=== PATIENT | male | born 1980 | race African-American/Black ===

== ENCOUNTER 2019-10-03 09:01 | Inpatient (IN) | payer MEDICAID, OTHER ==
[~2019-10-03] VITALS: Ht 180.3 cm; Wt 125.2 kg
[2019-10-03] VITALS (12 sets, daily range): BP systolic 99–153; BP diastolic 72–103
[2019-10-03] MEDS ORDERED: MORPHINE SULFATE 4 MG/ML CPJ (NOT FOR IM USE) IV STA (11:23)
[2019-10-03] MEDS ORDERED: ONDANSETRON HCL 4MG/2ML INJ IV STA (11:23)
[2019-10-03] MEDS ORDERED: SODIUM CHLORIDE 0.9% 1,000 ML IV ONE ×2 (11:23→13:14)
[2019-10-03 12:09] LABS: BASOPHILS % 0.3 % (0.0-2.0); HEMATOCRIT. 49.9 % (42.0-52.0); HEMOGLOBIN. 15.9 g/dL (14.0-18.0); LYMPHOCYTES % 8.3 % (20.0-50.0); MEAN CORPUSCULAR HEMOGLOBIN 30.4 pg (28.0-32.0); MEAN CORPUSCULAR VOLUME 95.5 fL (80.0-94.0); MEAN PLATELET VOLUME 9.6 fl (7.4-10.4); MONOCYTES % 4.3 % (2.0-8.0); NEUTROPHILS % 87.1 % (40.0-76.0); PLATELET 334 x1000/uL (130-400); RED BLOOD CELL COUNT 5.23 mill/uL (4.7-6.1)
[2019-10-03 12:15] LABS: CHLORIDE 76 mEq/L (98-107)
[2019-10-03 12:19] LABS: CLARITY URINE CLEAR (CLEAR); COLOR URINE YELLOW (YELLOW); KETONES URINE 1+ (NEGATIVE); LEUKOCYTE ESTERASE URINE NEGATIVE (NEGATIVE); NITRITE URINE NEGATIVE (NEGATIVE); OCCULT BLOOD URINE NEGATIVE (NEGATIVE); PROTEIN URINE NEGATIVE (NEGATIVE); SPECIFIC GRAVITY URINE 1.028 (1.005-1.030); UROBILINOGEN URINE 0.2 E.U./dL (0.2-1.0)
[2019-10-03] MEDS ORDERED: INSULIN REGULAR (DRIP) 100 UNITS in SODIUM CHLORIDE 0.9% 99 ML IV SCH ×2 (13:15→19:00)
[2019-10-03 14:00] LABS: BG BASE EXCESS -10.9 mmol/L (-2.0-2.0); BG CARBOXYHEMOGLOBIN 1.2 % (0.5-1.5); BG DEOXYHEMOGLOBIN 5.1 % (0.0-5.0); BG FRACTION INSPIRED OXYGEN 21; BG HCO3 ACT 14.4 mmol/L (22.0-26.0); BG METHEMOGLOBIN 0.3 % (0.0-1.5); BG OXYGEN SATURATION 94.8 % (92.0-98.5); BG OXYHEMOGLOBIN 93.4 % (94.0-97.0); BG PCO2 31.6 mmHg (35.0-45.0); BG PH 7.278 (7.350-7.450); BG PO2 81.4 mmHg (75.0-100.0); BG SAMPLE SITE RIGHT RADIAL; BG TOTAL HEMOGLOBIN 15.9 g/dL (12.0-18.0); BG VENT MODE ROOM AIR
[2019-10-03] MEDS ORDERED: SODIUM CHLORIDE 0.9% 1,000 ML IV SCH (14:33)
[2019-10-03] MEDS ORDERED: MAGNESIUM/ALUMINUM HYDROXIDE/SIMETHICONE 30ML UDC PO PRN (14:45)
[2019-10-03] MEDS ORDERED: ACETAMINOPHEN 325MG TABLET PO PRN (14:45)
[2019-10-03] MEDS ORDERED: DEXTROSE 50% WATER 50ML SYRINGE IV PRN ×2 (14:45)
[2019-10-03] MEDS ORDERED: CLONIDINE 0.1MG TABLET PO PRN (14:45)
[2019-10-03] MEDS ORDERED: ENOXAPARIN 40MG/0.4ML SYR SUBCUT SCH (14:45)
[2019-10-03] MEDS ORDERED: DOCUSATE SODIUM 100MG CAPSULE PO PRN (14:45)
[2019-10-03] MEDS ORDERED: NITROGLYCERIN 0.4MG TABLET SL SL PRN (14:45)
[2019-10-03] MEDS ORDERED: LORAZEPAM 0.5MG TABLET PO PRN (14:45)
[2019-10-03] MEDS ORDERED: IPRATROPIUM/ALBUTEROL 0.5-3(2.5)MG/3ML NEB NEB PRN (14:45)
[2019-10-03] MEDS ORDERED: GUAIFENESIN 200MG/10ML SUGAR FREE UDC PO PRN (14:45)
[2019-10-03] MEDS: BLOOD SUGAR DIAGNOSTIC STRIP TEST SCH ×10 (15:00→23:45)
[2019-10-03] MEDS: ENOXAPARIN 30MG/0.3ML SYR SUBCUT SCH (16:00)
[2019-10-03 16:22] LABS: CHLORIDE 93 mEq/L (98-107)
[2019-10-03 16:28] LABS: PHOSPHORUS 4.2 mg/dL (2.5-4.9)
[2019-10-03] MEDS ORDERED: ZOLPIDEM TARTRATE 5MG TABLET PO PRN (21:00)
[2019-10-03] MEDS: ONDANSETRON HCL 4MG/2ML INJ IV PRN (21:32)
[2019-10-04] VITALS (54 sets, daily range): BP systolic 114–175; BP diastolic 50–136
[2019-10-04 06:19] LABS: BASOPHILS % 0.5 % (0.0-2.0); CHLORIDE 104 mEq/L (98-107); EOSINOPHILS % 0.1 % (0.0-5.0); HEMATOCRIT. 44.3 % (42.0-52.0); HEMOGLOBIN. 15.3 g/dL (14.0-18.0); LYMPHOCYTES % 15.6 % (20.0-50.0); MEAN CORPUSCULAR HEMOGLOBIN 30.8 pg (28.0-32.0); MEAN CORPUSCULAR VOLUME 89.6 fL (80.0-94.0); MEAN PLATELET VOLUME 9.3 fl (7.4-10.4); MONOCYTES % 7.1 % (2.0-8.0); NEUTROPHILS % 76.7 % (40.0-76.0); PLATELET 254 x1000/uL (130-400); RED BLOOD CELL COUNT 4.95 mill/uL (4.7-6.1); RED CELL DISTRIBUTION WIDTH 13.1 % (11.6-14.6)
[2019-10-04 06:25] LABS: PHOSPHORUS 3.2 mg/dL (2.5-4.9)
[2019-10-04] MEDS: ENOXAPARIN 30MG/0.3ML SYR SUBCUT SCH ×2 (06:30→21:00)
[2019-10-04] MEDS: BLOOD SUGAR DIAGNOSTIC STRIP TEST SCH ×4 (07:52→21:00)
[2019-10-04] MEDS: PANTOPRAZOLE SODIUM 40 MG/VIAL IV SCH (07:59)
[2019-10-04] MEDS: KETOROLAC 15MG/ML VIAL IV PRN (08:00)
[2019-10-04] MEDS ORDERED: DEXTROSE 50% WATER 50ML SYRINGE IV PRN (09:00)
[2019-10-04] MEDS ORDERED: SODIUM POLYSTYRENE SULFONATE 15 G/60 ML BOT PO SCH (11:00)
[2019-10-04] MEDS ORDERED: INSULIN GLARGINE UD 100 UNITS/ML SYR SUBCUT SCH ×2 (11:00→22:00)
[2019-10-04] MEDS: INSULIN LISPRO 100 UNITS/ML SUBCUT SCH ×5 (12:29→21:00)
[2019-10-04] MEDS: ONDANSETRON HCL 4MG/2ML INJ IV PRN (13:00)
[2019-10-04] MEDS ORDERED: THROAT LOZENGES-BENZOCAINE/MENTH/CETYLPYRD CL LOZENGES MM PRN (17:15)
[2019-10-05] VITALS (34 sets, daily range): BP systolic 118–161; BP diastolic 72–108
[2019-10-05] MEDS: BLOOD SUGAR DIAGNOSTIC STRIP TEST SCH ×2 (07:17→11:29)
[2019-10-05] MEDS: INSULIN LISPRO 100 UNITS/ML SUBCUT SCH ×4 (07:23→11:48)
[2019-10-05] MEDS: ENOXAPARIN 30MG/0.3ML SYR SUBCUT SCH (09:21)
[2019-10-05] MEDS: PANTOPRAZOLE SODIUM 40 MG/VIAL IV SCH (09:21)
[2019-10-05] MEDS ORDERED: INSULIN GLARGINE UD 100 UNITS/ML SYR SUBCUT SCH ×2 (10:00→10:30)
[2019-10-05] MEDS: KETOROLAC 15MG/ML VIAL IV PRN (11:35)
== END 2019-10-05 15:33 | disposition home or self-care (01) | DRG 469 ==
LOC: ER 09:01 → MICUSO 13:43 → EDBEDREQ 13:50 → ENRESERV 16:41
PROVIDERS: ADMIT Internal Medicine; ATTEND Internal Medicine
DX: N17.9 Acute kidney failure, unspecified (principal); E11.10 Type 2 diabetes mellitus with ketoacidosis without coma; E83.52 Hypercalcemia; E87.1 Hypo-osmolality and hyponatremia; E66.9 Obesity, unspecified; I10 Essential (primary) hypertension; Z79.4 Long term (current) use of insulin; Z79.899 Other long term (current) drug therapy; Z68.38 Body mass index [BMI] 38.0-38.9, adult
CPT/HCPCS: 36415; 36600; 74176; 80048; 80053; 81003; 82375; 82805; 82962; 83036; 83735; 84100; 85025; 93922; 93970; 96365; 99291; C9113; J1650; J1815; J1885; J2270; J2405; J7030; J7050

== ENCOUNTER 2019-10-09 08:53 | Emergency (ER) | payer MEDICAID ==
[~2019-10-09] VITALS: Ht 177.8 cm; Wt 118.0 kg
[2019-10-09] MEDS ORDERED: SODIUM CHLORIDE 0.9% 1,000 ML IV ONE (09:20)
[2019-10-09 09:52] LABS: BASOPHILS % 0.6 % (0.0-2.0); EOSINOPHILS % 1.7 % (0.0-5.0); HEMATOCRIT. 38.5 % (42.0-52.0); HEMOGLOBIN. 13.2 g/dL (14.0-18.0); LYMPHOCYTES % 34.5 % (20.0-50.0); MEAN CORPUSCULAR HEMOGLOBIN 31.2 pg (28.0-32.0); MEAN PLATELET VOLUME 8.7 fl (7.4-10.4); NEUTROPHILS % 56.2 % (40.0-76.0); PLATELET 206 x1000/uL (130-400); RED BLOOD CELL COUNT 4.23 mill/uL (4.7-6.1); RED CELL DISTRIBUTION WIDTH 12.8 % (11.6-14.6)
[2019-10-09 09:55] LABS: CHLORIDE 99 mEq/L (98-107); INR 0.9; PROTHROMBIN TIME 9.4 sec (9.6-11.0)
[2019-10-09 09:55] LABS: BG BASE EXCESS 0.4 mmol/L (-2.0-2.0); BG CARBOXYHEMOGLOBIN 0.4 % (0.5-1.5); BG FRACTION INSPIRED OXYGEN 21; BG HCO3 ACT 25.2 mmol/L (22.0-26.0); BG METHEMOGLOBIN 0.3 % (0.0-1.5); BG OXYHEMOGLOBIN 95.3 % (94.0-97.0); BG PH 7.406 (7.350-7.450); BG PO2 77.3 mmHg (75.0-100.0); BG SAMPLE SITE RIGHT RADIAL; BG TOTAL HEMOGLOBIN 13.4 g/dL (12.0-18.0); BG VENT MODE ROOM AIR
[2019-10-09 10:01] LABS: BETA HYDROXYBUTYRATE 1.8 mMol/L (0.0-0.3)
[2019-10-09] MEDS ORDERED: INSULIN REGULAR (HUMULIN R) 300UNITS/3ML SUBCUT ONE (11:45)
[2019-10-09 11:47] LABS: CLARITY URINE CLEAR (CLEAR); COLOR URINE YELLOW (YELLOW); KETONES URINE 1+ (NEGATIVE); LEUKOCYTE ESTERASE URINE NEGATIVE (NEGATIVE); NITRITE URINE NEGATIVE (NEGATIVE); OCCULT BLOOD URINE NEGATIVE (NEGATIVE); PROTEIN URINE NEGATIVE (NEGATIVE); SPECIFIC GRAVITY URINE 1.017 (1.005-1.030)
[2019-10-09 11:49] VITALS: BP 130/74
== END 2019-10-09 11:52 | disposition home or self-care (01) ==
LOC: ER 09:11
DX: R10.84 Generalized abdominal pain (principal); Z76.0 Encounter for issue of repeat prescription; E11.9 Type 2 diabetes mellitus without complications; I10 Essential (primary) hypertension
CPT/HCPCS: 36415; 36600; 74176; 80053; 81003; 82010; 82375; 82805; 82962; 83690; 84484; 85025; 85610; 99284; J7030; Z7610

== ENCOUNTER 2020-09-21 21:16 | Inpatient (IN) | payer MEDICAID ==
[~2020-09-21] VITALS: Ht 165.1 cm; Wt 90.7 kg
[2020-09-22 00:46] LABS: BASOPHILS % 0.5 % (0.0-2.0); HEMATOCRIT. 46.3 % (42.0-52.0); HEMOGLOBIN. 15.6 g/dL (14.0-18.0); LYMPHOCYTES % 37.9 % (20.0-50.0); MEAN CORPUSCULAR VOLUME 89.3 fL (80.0-94.0); MONOCYTES % 8.1 % (2.0-8.0); NEUTROPHILS % 53.5 % (40.0-76.0); PLATELET 139 x1000/uL (130-400); RED BLOOD CELL COUNT 5.18 mill/uL (4.7-6.1); RED CELL DISTRIBUTION WIDTH 13.4 % (11.6-14.6)
[2020-09-22 00:49] LABS: CHLORIDE 103 mEq/L (98-107)
[2020-09-22 00:51] LABS: PARTIAL THROMBOPLASTIN TIME 26.2 sec (23.4-31.0); PROTHROMBIN TIME 10.8 sec (9.6-11.0)
[2020-09-22 00:55] LABS: ETHANOL BLOOD < 10 mg/dL
[2020-09-22 02:50] LABS: CLARITY URINE CLEAR (CLEAR); COLOR URINE DARK YELLOW (YELLOW); KETONES URINE TRACE (NEGATIVE); LEUKOCYTE ESTERASE URINE NEGATIVE (NEGATIVE); NITRITE URINE NEGATIVE (NEGATIVE); OCCULT BLOOD URINE NEGATIVE (NEGATIVE); PROTEIN URINE 1+ (NEGATIVE); SPECIFIC GRAVITY URINE 1.021 (1.005-1.030)
[2020-09-22 03:09] LABS: *AMPHETAMINES SCREEN URINE NEGATIVE (NEGATIVE); *BARBITURATES SCREEN URINE NEGATIVE (NEGATIVE); *BENZODIAZEPINES SCREEN URINE NEGATIVE (NEGATIVE)
[2020-09-22 03:10] LABS: *COCAINE SCREEN URINE NEGATIVE (NEGATIVE); CANNABINOID URINE SCREEN NEGATIVE (NEGATIVE); METHADONE URINE SCREEN NEGATIVE (NEGATIVE); OPIATES URINE SCREEN NEGATIVE (NEGATIVE); PHENCYCLIDINE URINE SCREEN NEGATIVE (NEGATIVE)
[2020-09-22] MEDS ORDERED: ONDANSETRON HCL 4MG/2ML INJ IV PRN (09:30)
[2020-09-22] MEDS ORDERED: ACETAMINOPHEN 325MG TABLET PO PRN (09:30)
[2020-09-22] MEDS: DOCUSATE SODIUM 250MG CAPSULE PO SCH (11:00)
[2020-09-22] MEDS ORDERED: ENOXAPARIN 40MG/0.4ML SYR SUBCUT SCH (11:00)
[2020-09-22] MEDS ORDERED: BISACODYL 10MG SUPP PR PRN (12:00)
[2020-09-22] MEDS: PIPERACILLIN/TAZ 3.375G PREMIX 50 ML IV SCH ×2 (13:30→20:45)
[2020-09-22] MEDS: FAMOTIDINE 20MG TABLET PO SCH (22:10)
[2020-09-22] MEDS: MORPHINE SULFATE 2 MG/ML CPJ (NOT FOR IM USE) IV PRN (22:11)
[2020-09-22] MEDS: ENOXAPARIN 80MG/0.8ML SYR SUBCUT SCH (22:11)
[2020-09-23] MEDS: PIPERACILLIN/TAZ 3.375G PREMIX 50 ML IV SCH (03:53)
[2020-09-23] MEDS: MORPHINE SULFATE 2 MG/ML CPJ (NOT FOR IM USE) IV PRN ×2 (03:54→22:53)
[2020-09-23 05:41] LABS: BASOPHILS % 0.8 % (0.0-2.0); EOSINOPHILS % 0.1 % (0.0-5.0); HEMATOCRIT. 45.3 % (42.0-52.0); HEMOGLOBIN. 15.1 g/dL (14.0-18.0); MEAN CORPUSCULAR HEMOGLOBIN 30.2 pg (28.0-32.0); MEAN CORPUSCULAR VOLUME 90.2 fL (80.0-94.0); MEAN PLATELET VOLUME 9.1 fl (7.4-10.4); MONOCYTES % 8.4 % (2.0-8.0); NEUTROPHILS % 59.7 % (40.0-76.0); PLATELET 108 x1000/uL (130-400); RED BLOOD CELL COUNT 5.02 mill/uL (4.7-6.1); RED CELL DISTRIBUTION WIDTH 13.2 % (11.6-14.6)
[2020-09-23 05:48] LABS: CHLORIDE 102 mEq/L (98-107)
[2020-09-23 06:31] LABS: HEPATITIS B SURFACE ANTIGEN NEGATIVE
[2020-09-23 07:00] LABS: HEPATITIS A AB IGM NEGATIVE (NEGATIVE)
[2020-09-23] MEDS: AMLODIPINE 2.5MG TABLET PO SCH (11:00)
[2020-09-23] MEDS ORDERED: SODIUM CHLORIDE 0.9% 500 ML IV ONE (12:15)
[2020-09-23] MEDS ORDERED: MIDODRINE HCL 5MG TABLET PO PRN (12:15)
[2020-09-23 13:23] VITALS: BP 99/54
[2020-09-23] MEDS: DOCUSATE SODIUM 250MG CAPSULE PO SCH (14:21)
[2020-09-23] MEDS: ENOXAPARIN 80MG/0.8ML SYR SUBCUT SCH ×2 (14:21→22:26)
[2020-09-23] MEDS: NITROGLYCERIN OINT 1GM/INCH UDPKT TD SCH ×2 (14:21→22:27)
[2020-09-23] MEDS: ASPIRIN 81MG TABLET PO SCH (14:21)
[2020-09-23 15:56] VITALS: BP 119/58
[2020-09-23 16:00] VITALS: BP 97/30
[2020-09-23] MEDS: PIPERACILLIN/TAZOBACTAM 3.375 G in DEXT 5% WATER 100 ML IV SCH (18:00)
[2020-09-23] MEDS: FAMOTIDINE 20MG TABLET PO SCH (22:27)
[2020-09-24] VITALS: BP 98/52
[2020-09-24] MEDS: PIPERACILLIN/TAZOBACTAM 3.375 G in DEXT 5% WATER 100 ML IV SCH ×4 (00:05→17:46)
[2020-09-24 04:00] VITALS: BP 98/43
[2020-09-24] MEDS: NITROGLYCERIN OINT 1GM/INCH UDPKT TD SCH (06:08)
[2020-09-24 07:16] LABS: BASOPHILS % 0.3 % (0.0-2.0); EOSINOPHILS % 0.1 % (0.0-5.0); HEMATOCRIT. 44.6 % (42.0-52.0); HEMOGLOBIN. 14.8 g/dL (14.0-18.0); LYMPHOCYTES % 42.5 % (20.0-50.0); MEAN CORPUSCULAR HEMOGLOBIN 29.9 pg (28.0-32.0); MEAN CORPUSCULAR VOLUME 90.1 fL (80.0-94.0); MEAN PLATELET VOLUME 9.9 fl (7.4-10.4); MONOCYTES % 9.5 % (2.0-8.0); NEUTROPHILS % 47.6 % (40.0-76.0); PLATELET 116 x1000/uL (130-400); RED BLOOD CELL COUNT 4.95 mill/uL (4.7-6.1); RED CELL DISTRIBUTION WIDTH 13.5 % (11.6-14.6)
[2020-09-24 07:30] LABS: CHLORIDE 104 mEq/L (98-107)
[2020-09-24 08:00] VITALS: BP 90/53
[2020-09-24] MEDS: DOCUSATE SODIUM 250MG CAPSULE PO SCH (08:39)
[2020-09-24] MEDS: ASPIRIN 81MG TABLET PO SCH (08:39)
[2020-09-24] MEDS: ENOXAPARIN 80MG/0.8ML SYR SUBCUT SCH ×2 (08:40→22:28)
[2020-09-24] MEDS: AMLODIPINE 2.5MG TABLET PO SCH (08:40)
[2020-09-24 12:00] VITALS: BP 108/48
[2020-09-24 16:00] VITALS: BP 96/60
[2020-09-24 20:00] VITALS: BP 99/61
[2020-09-24] MEDS: FAMOTIDINE 20MG TABLET PO SCH (22:28)
[2020-09-24] MEDS: MORPHINE SULFATE 2 MG/ML CPJ (NOT FOR IM USE) IV PRN (22:29)
[2020-09-25] VITALS: BP 102/65
[2020-09-25] MEDS: PIPERACILLIN/TAZOBACTAM 3.375 G in DEXT 5% WATER 100 ML IV SCH ×3 (00:37→13:37)
[2020-09-25 04:00] VITALS: BP 101/62
[2020-09-25 07:40] LABS: BASOPHILS % 0.3 % (0.0-2.0); EOSINOPHILS % 0.1 % (0.0-5.0); HEMATOCRIT. 45.4 % (42.0-52.0); HEMOGLOBIN. 15.3 g/dL (14.0-18.0); LYMPHOCYTES % 43.7 % (20.0-50.0); MEAN CORPUSCULAR HEMOGLOBIN 30.4 pg (28.0-32.0); MEAN CORPUSCULAR VOLUME 90.3 fL (80.0-94.0); MEAN PLATELET VOLUME 10.5 fl (7.4-10.4); MONOCYTES % 8.6 % (2.0-8.0); NEUTROPHILS % 47.3 % (40.0-76.0); PLATELET 118 x1000/uL (130-400); RED BLOOD CELL COUNT 5.03 mill/uL (4.7-6.1); RED CELL DISTRIBUTION WIDTH 13.4 % (11.6-14.6)
[2020-09-25 08:00] VITALS: BP 93/62
[2020-09-25 08:51] LABS: CHLORIDE 102 mEq/L (98-107)
[2020-09-25] MEDS ORDERED: ENOXAPARIN 40MG/0.4ML SYR SUBCUT SCH (09:30)
[2020-09-25] MEDS: DOCUSATE SODIUM 250MG CAPSULE PO SCH (09:36)
[2020-09-25] MEDS: ASPIRIN 81MG TABLET PO SCH (09:36)
[2020-09-25 12:00] VITALS: BP 112/50
[2020-09-25 15:03] VITALS: BP 112/50
[2020-09-25] MEDS ORDERED: METOPROLOL TARTRATE 50MG TABLET PO SCH (21:00)
[2020-10-01] MEDS ORDERED: BENZ100C86 MT ×2 (14:57→15:00)
[2020-10-01] MEDS ORDERED: ASPI-1497 MT (14:57)
[2020-10-01] MEDS ORDERED: INSU100V34 SQ (14:58)
[2020-10-12] MEDS ORDERED: LIP40 MT (12:48)
[2020-10-12] MEDS ORDERED: SIME80TA15 MT (14:03)
[2020-10-12] MEDS ORDERED: SUCR1TAB MT (14:03)
== END 2020-09-25 15:47 | disposition home or self-care (01) | DRG 720 ==
LOC: ER 21:16 → MICUSO 09-22 02:01 → 7WST 09-23 09:05
PROVIDERS: ADMIT Internal Medicine; ATTEND Internal Medicine
DX: A41.89 Other specified sepsis (principal); U07.1 COVID-19; I21.4 Non-ST elevation (NSTEMI) myocardial infarction; E44.0 Moderate protein-calorie malnutrition; E66.9 Obesity, unspecified; I10 Essential (primary) hypertension; J96.00 Acute respiratory failure, unspecified whether with hypoxia or hypercapnia; K21.9 Gastro-esophageal reflux disease without esophagitis; R74.01 Elevation of levels of liver transaminase levels; K76.0 Fatty (change of) liver, not elsewhere classified; E11.9 Type 2 diabetes mellitus without complications; K59.00 Constipation, unspecified; K82.8 Other specified diseases of gallbladder; I47.1 Supraventricular tachycardia; J12.89 Other viral pneumonia; Z79.4 Long term (current) use of insulin; I69.320 Aphasia following cerebral infarction; Z68.33 Body mass index [BMI] 33.0-33.9, adult; Z71.3 Dietary counseling and surveillance; K81.9 Cholecystitis, unspecified
CPT/HCPCS: 36415; 71045; 76700; 80048; 80053; 80061; 80076; 80305; 80320; 81003; 82248; 83036; 83880; 84443; 84484; 85025; 86705; 86709; 86803; 87340; 93005; 96372; 96374; 99285; J1650; J2270; J2405; J2543; J7040; J7060; U0003; G0480

== ENCOUNTER 2021-01-31 21:35 | Inpatient (IN) | payer MEDICARE ==
[~2021-01-31] VITALS: Ht 182.9 cm; Wt 90.3 kg
[~2021-01-31 21:35] MED LIST: CLOP75TA15 MT; COR6 PO; FURO-152 MT; KEPP500 MT; LIP40 MT; LISI-186 PO; MAGN400C MT; METF-414 MT; METO10TA3 MT; OMEP20TA2 MT; POTA10CA42 MT; SIME80TA14 PO; SIME80TA15 MT
[2021-01-31 23:58] LABS: CHLORIDE 105 mEq/L (98-107)
[2021-02-01 00:19] LABS: BASOPHILS % 0.7 % (0.0-2.0); HEMATOCRIT. 41.1 % (42.0-52.0); HEMOGLOBIN. 13.5 g/dL (14.0-18.0); LYMPHOCYTES % 51.7 % (20.0-50.0); MEAN CORPUSCULAR HEMOGLOBIN 29.7 pg (28.0-32.0); MEAN CORPUSCULAR VOLUME 90.1 fL (80.0-94.0); MEAN PLATELET VOLUME 10.1 fl (7.4-10.4); MONOCYTES % 4.7 % (2.0-8.0); NEUTROPHILS % 41.9 % (40.0-76.0); PLATELET 125 x1000/uL (130-400); RED BLOOD CELL COUNT 4.56 mill/uL (4.7-6.1)
[2021-02-01] MEDS ORDERED: ACETAMINOPHEN 325MG TABLET PO PRN (14:30)
[2021-02-01] MEDS: FUROSEMIDE 40MG/4ML VIAL IVP SCH (15:18)
[2021-02-01] MEDS ORDERED: ENOXAPARIN 40MG/0.4ML SYR SUBCUT SCH (18:00)
[2021-02-01] MEDS: OMEPRAZOLE 20MG CAPSULE EXTENDED RELEASE PO SCH (18:30)
[2021-02-01] MEDS ORDERED: IOHEXOL-350 100 ML BOTTLE ONE (19:57)
[2021-02-01] MEDS ORDERED: HYDROCODONE/ACETAMINOPHEN 5/325MG TABLET PO PRN (20:30)
[2021-02-01] MEDS: CARVEDILOL 3.125 MG TABLET PO SCH (20:30)
[2021-02-01] MEDS: ONDANSETRON HCL 4MG/2ML INJ IV PRN (21:01)
[2021-02-01] MEDS: ATORVASTATIN CALCIUM 40MG TABLET PO SCH (21:01)
[2021-02-01] MEDS ORDERED: MORPHINE SULFATE 2 MG/ML CPJ (NOT FOR IM USE) IV SCH (21:15)
[2021-02-01 22:00] VITALS: BP 103/77
[2021-02-02] VITALS: BP 108/74
[2021-02-02 04:00] VITALS: BP 106/71
[2021-02-02] MEDS: OMEPRAZOLE 20MG CAPSULE EXTENDED RELEASE PO SCH (05:02)
[2021-02-02 06:48] LABS: BASOPHILS % 0.9 % (0.0-2.0); EOSINOPHILS % 2.5 % (0.0-5.0); HEMATOCRIT. 40.7 % (42.0-52.0); HEMOGLOBIN. 13.4 g/dL (14.0-18.0); LYMPHOCYTES % 36.3 % (20.0-50.0); MEAN CORPUSCULAR HEMOGLOBIN 29.8 pg (28.0-32.0); MEAN CORPUSCULAR VOLUME 90.2 fL (80.0-94.0); MEAN PLATELET VOLUME 10.1 fl (7.4-10.4); MONOCYTES % 5.5 % (2.0-8.0); NEUTROPHILS % 54.8 % (40.0-76.0); PLATELET 104 x1000/uL (130-400); RED BLOOD CELL COUNT 4.51 mill/uL (4.7-6.1); RED CELL DISTRIBUTION WIDTH 20.4 % (11.6-14.6)
[2021-02-02 06:54] LABS: CHLORIDE 104 mEq/L (98-107)
[2021-02-02 08:00] VITALS: BP 115/99
[2021-02-02] MEDS: FUROSEMIDE 40MG/4ML VIAL IVP SCH ×2 (08:10→17:50)
[2021-02-02] MEDS: METFORMIN HCL 500MG TABLET PO SCH ×2 (08:11→17:50)
[2021-02-02] MEDS: LOSARTAN POTASSIUM 25 MG TABLET PO SCH (08:12)
[2021-02-02] MEDS: CARVEDILOL 3.125 MG TABLET PO SCH ×2 (08:12→20:48)
[2021-02-02] MEDS: ASPIRIN 81MG TABLET PO SCH ×2 (08:12→08:19)
[2021-02-02 12:00] VITALS: BP 100/66
[2021-02-02] MEDS ORDERED: POTASSIUM CHLORIDE 20MEQ TABLET SR PO SCH (12:00)
[2021-02-02] MEDS: ENOXAPARIN 100MG/ML SYR SUBCUT SCH ×2 (12:07→21:01)
[2021-02-02 16:00] VITALS: BP 103/73
[2021-02-02 20:00] VITALS: BP 97/69
[2021-02-02] MEDS: ATORVASTATIN CALCIUM 40MG TABLET PO SCH (20:50)
[2021-02-02] MEDS ORDERED: MORPHINE SULFATE 2 MG/ML CPJ (NOT FOR IM USE) IV PRN (21:00)
[2021-02-03] VITALS: BP 98/69
[2021-02-03 04:00] VITALS: BP 121/69
[2021-02-03] MEDS: FUROSEMIDE 40MG/4ML VIAL IVP SCH (06:15)
[2021-02-03 06:18] LABS: BASOPHILS % 0.9 % (0.0-2.0); CHLORIDE 105 mEq/L (98-107); EOSINOPHILS % 3.1 % (0.0-5.0); HEMATOCRIT. 42.8 % (42.0-52.0); HEMOGLOBIN. 13.8 g/dL (14.0-18.0); LYMPHOCYTES % 52.1 % (20.0-50.0); MEAN CORPUSCULAR HEMOGLOBIN 29.1 pg (28.0-32.0); MEAN CORPUSCULAR VOLUME 89.9 fL (80.0-94.0); MEAN PLATELET VOLUME 10.2 fl (7.4-10.4); NEUTROPHILS % 38.9 % (40.0-76.0); PLATELET 124 x1000/uL (130-400); RED BLOOD CELL COUNT 4.76 mill/uL (4.7-6.1); RED CELL DISTRIBUTION WIDTH 20.5 % (11.6-14.6)
[2021-02-03 06:34] LABS: INR 1.5; PROTHROMBIN TIME 15.4 sec (9.6-11.0)
[2021-02-03 08:00] VITALS: BP 93/66
[2021-02-03] MEDS: CARVEDILOL 3.125 MG TABLET PO SCH (08:34)
[2021-02-03] MEDS: LOSARTAN POTASSIUM 25 MG TABLET PO SCH (08:34)
[2021-02-03] MEDS: METFORMIN HCL 500MG TABLET PO SCH (08:40)
[2021-02-03] MEDS: ENOXAPARIN 100MG/ML SYR SUBCUT SCH (08:42)
[2021-02-03] MEDS ORDERED: FAMOTIDINE 20MG TABLET PO SCH (09:00)
[2021-02-03] MEDS ORDERED: POTA10CA42 MT (11:56)
[2021-02-03] MEDS ORDERED: LIP40 MT (11:56)
[2021-02-03] MEDS ORDERED: LISI-186 PO (11:56)
[2021-02-03] MEDS ORDERED: FURO-151 MT (11:56)
[2021-02-03] MEDS ORDERED: APIX5TAB PO (11:56)
[2021-02-03] MEDS ORDERED: OMEP20TA2 MT (11:56)
[2021-02-03] MEDS ORDERED: MAGN400C MT (11:56)
[2021-02-03] MEDS ORDERED: APIX5TAB MT (11:56)
[2021-02-03] MEDS ORDERED: METO10TA3 MT (11:56)
[2021-02-03] MEDS ORDERED: METF-414 MT (11:56)
[2021-02-03] MEDS ORDERED: COR6 PO (11:56)
[2021-02-03 12:00] VITALS: BP 94/64
[2021-02-03 13:07] VITALS: BP 94/64
[2021-02-03] MEDS: ONDANSETRON HCL 4MG/2ML INJ IV PRN (14:20)
== END 2021-02-03 15:05 | disposition home or self-care (01) | DRG 194 ==
LOC: ER 21:35 → 5WST 02-01 02:53 → ENRESERV 02-01 19:32
PROVIDERS: ADMIT Internal Medicine; ATTEND Internal Medicine
DX: I50.23 Acute on chronic systolic (congestive) heart failure (principal); I27.20 Pulmonary hypertension, unspecified; K31.84 Gastroparesis; I82.401 Acute embolism and thrombosis of unspecified deep veins of right lower extremity; E11.43 Type 2 diabetes mellitus with diabetic autonomic (poly)neuropathy; M94.0 Chondrocostal junction syndrome [Tietze]; K29.70 Gastritis, unspecified, without bleeding; G89.29 Other chronic pain; Z86.16 Personal history of COVID-19; Z86.73 Personal history of transient ischemic attack (TIA), and cerebral infarction without residual deficits; Z79.899 Other long term (current) drug therapy
CPT/HCPCS: 36415; 71045; 71275; 80048; 80053; 83880; 84484; 85025; 85379; 93005; 93970; 97162; 97166; 99285; J1650; J1940; J2270; J2405; Q9967

== ENCOUNTER 2021-03-18 20:53 | Inpatient (IN) | payer MEDICARE ==
[~2021-03-18] VITALS: Ht 177.8 cm; Wt 102.7 kg
[~2021-03-18 20:53] MED LIST changes: +APIX5TAB MT; +APIX5TAB PO; -CLOP75TA15 MT; +FURO-151 MT
[2021-03-18] MEDS ORDERED: SODIUM CHLORIDE 0.9% 1,000 ML IV ONE (21:15)
[2021-03-18 21:36] LABS: BASOPHILS % 0.8 % (0.0-2.0); EOSINOPHILS % 0.4 % (0.0-5.0); HEMOGLOBIN. 12.8 g/dL (14.0-18.0); LYMPHOCYTES % 20.5 % (20.0-50.0); MEAN CORPUSCULAR HEMOGLOBIN 31.1 pg (28.0-32.0); MEAN CORPUSCULAR VOLUME 91.9 fL (80.0-94.0); MEAN PLATELET VOLUME 8.6 fl (7.4-10.4); MONOCYTES % 6.7 % (2.0-8.0); NEUTROPHILS % 71.6 % (40.0-76.0); PLATELET 191 x1000/uL (130-400); RED BLOOD CELL COUNT 4.13 mill/uL (4.7-6.1); RED CELL DISTRIBUTION WIDTH 21.1 % (11.6-14.6)
[2021-03-18 21:43] LABS: CHLORIDE 100 mEq/L (98-107)
[2021-03-18 21:47] LABS: ETHANOL BLOOD < 10 mg/dL
[2021-03-18] MEDS ORDERED: PANTOPRAZOLE SODIUM 40 MG/VIAL IV ONE (23:15)
[2021-03-18] MEDS ORDERED: HYDROCODONE/ACETAMINOPHEN 5/325MG TABLET PO ONE (23:45)
[2021-03-19] VITALS (10 sets, daily range): BP systolic 93–106; BP diastolic 54–67
[2021-03-19 02:47] LABS: CLARITY URINE CLOUDY (CLEAR); COLOR URINE DARK YELLOW (YELLOW); KETONES URINE NEGATIVE (NEGATIVE); LEUKOCYTE ESTERASE URINE 2+ (NEGATIVE); NITRITE URINE NEGATIVE (NEGATIVE); OCCULT BLOOD URINE 1+ (NEGATIVE); PROTEIN URINE 2+ (NEGATIVE); SPECIFIC GRAVITY URINE 1.014 (1.005-1.030)
[2021-03-19] MEDS ORDERED: MORPHINE SULFATE 2 MG/ML CPJ (NOT FOR IM USE) IV SCH (03:15)
[2021-03-19] MEDS ORDERED: ONDANSETRON HCL 4MG/2ML INJ IV PRN ×2 (03:15→06:00)
[2021-03-19] MEDS ORDERED: MORPHINE SULFATE 2 MG/ML CPJ (NOT FOR IM USE) IV PRN (06:00)
[2021-03-19] MEDS ORDERED: DEXTROSE 50% WATER 50ML SYRINGE IV PRN (06:00)
[2021-03-19] MEDS: BLOOD SUGAR DIAGNOSTIC STRIP TEST SCH ×4 (06:57→20:41)
[2021-03-19] MEDS: OMEPRAZOLE 20MG CAPSULE EXTENDED RELEASE PO SCH ×2 (07:00→20:57)
[2021-03-19] MEDS: INSULIN LISPRO 100 UNITS/ML SUBCUT SCH ×4 (07:20→20:58)
[2021-03-19] MEDS ORDERED: HYDROCODONE/ACETAMINOPHEN 5/325MG TABLET PO PRN (08:00)
[2021-03-19] MEDS: CARVEDILOL 3.125 MG TABLET PO SCH ×2 (09:00→20:59)
[2021-03-19] MEDS ORDERED: ENOXAPARIN 30MG/0.3ML SYR SUBCUT SCH (09:00)
[2021-03-19] MEDS ORDERED: FUROSEMIDE 20MG TABLET PO SCH (09:00)
[2021-03-19] MEDS: METFORMIN HCL 500MG TABLET PO SCH ×2 (09:37→17:34)
[2021-03-19] MEDS: ATORVASTATIN CALCIUM 40MG TABLET PO SCH (09:37)
[2021-03-19] MEDS: LEVETIRACETAM 500MG TABLET PO SCH ×2 (09:37→17:34)
[2021-03-19] MEDS: ENOXAPARIN 80MG/0.8ML SYR SUBCUT NR ×2 (12:42→12:54)
[2021-03-19] MEDS: METOCLOPRAMIDE HCL 10MG/2ML VIAL IV SCH ×2 (12:42→17:34)
[2021-03-19 18:32] LABS: BASOPHILS % 0.4 % (0.0-2.0); HEMATOCRIT. 37.8 % (42.0-52.0); HEMOGLOBIN. 12.5 g/dL (14.0-18.0); MEAN CORPUSCULAR HEMOGLOBIN 30.2 pg (28.0-32.0); MEAN CORPUSCULAR VOLUME 91.1 fL (80.0-94.0); MONOCYTES % 6.3 % (2.0-8.0); NEUTROPHILS % 69.3 % (40.0-76.0); PLATELET 193 x1000/uL (130-400); RED BLOOD CELL COUNT 4.15 mill/uL (4.7-6.1); RED CELL DISTRIBUTION WIDTH 20.7 % (11.6-14.6)
[2021-03-19 18:39] LABS: INR 1.6
[2021-03-19] MEDS ORDERED: ENOXAPARIN 100MG/ML SYR SUBCUT SCH (21:00)
[2021-03-19] MEDS: GUAIFENESIN-DM 200MG-20MG/10ML UDC PO PRN (23:23)
[2021-03-19] MEDS: KETOROLAC 30MG/ML VIAL IV PRN (23:25)
[2021-03-20] VITALS (10 sets, daily range): BP systolic 93–108; BP diastolic 59–76
[2021-03-20] MEDS: METOCLOPRAMIDE HCL 10MG/2ML VIAL IV SCH ×4 (01:01→17:22)
[2021-03-20] MEDS: BLOOD SUGAR DIAGNOSTIC STRIP TEST SCH ×4 (06:21→21:49)
[2021-03-20 06:40] LABS: CHLORIDE 101 mEq/L (98-107)
[2021-03-20] MEDS: OMEPRAZOLE 20MG CAPSULE EXTENDED RELEASE PO SCH ×2 (06:44→21:56)
[2021-03-20 06:46] LABS: HEMATOCRIT 37.7 % (42.0-52.0); HEMOGLOBIN 12.9 g/dL (14.0-18.0); MEAN CORPUSCULAR HEMOGLOBIN 31.3 pg (28.0-32.0); MEAN CORPUSCULAR VOLUME 91.3 fL (80.0-94.0); PLATELET 184 x1000/uL (130-400); RED BLOOD CELL COUNT 4.13 mill/uL (4.7-6.1); RED CELL DISTRIBUTION WIDTH 20.4 % (11.6-14.6)
[2021-03-20] MEDS: INSULIN LISPRO 100 UNITS/ML SUBCUT SCH ×4 (07:20→21:00)
[2021-03-20] MEDS: CARVEDILOL 3.125 MG TABLET PO SCH ×3 (08:52→21:00)
[2021-03-20] MEDS ORDERED: MORPHINE SULFATE 2 MG/ML CPJ (NOT FOR IM USE) IV SCH (09:00)
[2021-03-20] MEDS: METFORMIN HCL 500MG TABLET PO SCH ×2 (09:03→17:22)
[2021-03-20] MEDS: ATORVASTATIN CALCIUM 40MG TABLET PO SCH (09:05)
[2021-03-20] MEDS: LEVETIRACETAM 500MG TABLET PO SCH ×2 (09:05→17:22)
[2021-03-20] MEDS ORDERED: FUROSEMIDE 40MG/4ML VIAL IVP NR (17:00)
[2021-03-20] MEDS ORDERED: RIVAROXABAN 20 MG TABLET PO SCH (17:20)
[2021-03-20] MEDS: GUAIFENESIN-DM 200MG-20MG/10ML UDC PO PRN (21:56)
[2021-03-20] MEDS: KETOROLAC 30MG/ML VIAL IV PRN (21:58)
[2021-03-21] VITALS (12 sets, daily range): BP systolic 95–129; BP diastolic 52–80
[2021-03-21] MEDS: METOCLOPRAMIDE HCL 10MG/2ML VIAL IV SCH ×5 (00:43→23:00)
[2021-03-21] MEDS: ZOLPIDEM TARTRATE 5MG TABLET PO PRN ×2 (00:43→23:00)
[2021-03-21] MEDS: BLOOD SUGAR DIAGNOSTIC STRIP TEST SCH ×4 (06:40→21:11)
[2021-03-21] MEDS: INSULIN LISPRO 100 UNITS/ML SUBCUT SCH ×4 (06:41→21:00)
[2021-03-21] MEDS: OMEPRAZOLE 20MG CAPSULE EXTENDED RELEASE PO SCH ×2 (06:46→21:10)
[2021-03-21 08:17] LABS: HEMATOCRIT 39.3 % (42.0-52.0); HEMOGLOBIN 13.2 g/dL (14.0-18.0); MEAN CORPUSCULAR HEMOGLOBIN 30.3 pg (28.0-32.0); MEAN CORPUSCULAR VOLUME 90.3 fL (80.0-94.0); PLATELET 213 x1000/uL (130-400); RED BLOOD CELL COUNT 4.35 mill/uL (4.7-6.1); RED CELL DISTRIBUTION WIDTH 21.1 % (11.6-14.6)
[2021-03-21] MEDS: ATORVASTATIN CALCIUM 40MG TABLET PO SCH (08:56)
[2021-03-21] MEDS: LEVETIRACETAM 500MG TABLET PO SCH ×2 (08:56→18:04)
[2021-03-21] MEDS: METFORMIN HCL 500MG TABLET PO SCH ×2 (08:56→18:04)
[2021-03-21] MEDS: CARVEDILOL 3.125 MG TABLET PO SCH ×2 (08:58→21:00)
[2021-03-21 09:04] LABS: CHLORIDE 100 mEq/L (98-107)
[2021-03-21] MEDS ORDERED: POTASSIUM CHLORIDE 20MEQ TABLET SR PO SCH (09:15)
[2021-03-21] MEDS ORDERED: FUROSEMIDE 40MG/4ML VIAL IVP NR (12:45)
[2021-03-21] MEDS: FUROSEMIDE 40MG/4ML VIAL IVP SCH (18:04)
[2021-03-22] VITALS (10 sets, daily range): BP systolic 98–108; BP diastolic 55–73
[2021-03-22 06:14] LABS: HEMATOCRIT 39.9 % (42.0-52.0); HEMOGLOBIN 13.3 g/dL (14.0-18.0); MEAN CORPUSCULAR HEMOGLOBIN 30.3 pg (28.0-32.0); MEAN CORPUSCULAR VOLUME 90.6 fL (80.0-94.0); PLATELET 193 x1000/uL (130-400); RED CELL DISTRIBUTION WIDTH 21.1 % (11.6-14.6)
[2021-03-22] MEDS: METOCLOPRAMIDE HCL 10MG/2ML VIAL IV SCH ×3 (06:14→18:00)
[2021-03-22] MEDS: OMEPRAZOLE 20MG CAPSULE EXTENDED RELEASE PO SCH (06:14)
[2021-03-22] MEDS: BLOOD SUGAR DIAGNOSTIC STRIP TEST SCH ×3 (06:24→17:00)
[2021-03-22] MEDS: INSULIN LISPRO 100 UNITS/ML SUBCUT SCH ×3 (07:20→17:20)
[2021-03-22 07:42] LABS: CHLORIDE 104 mEq/L (98-107)
[2021-03-22] MEDS: CARVEDILOL 3.125 MG TABLET PO SCH (08:52)
[2021-03-22] MEDS: ATORVASTATIN CALCIUM 40MG TABLET PO SCH (08:56)
[2021-03-22] MEDS: METFORMIN HCL 500MG TABLET PO SCH ×2 (08:56→18:27)
[2021-03-22] MEDS: LEVETIRACETAM 500MG TABLET PO SCH ×2 (08:56→18:27)
[2021-03-22] MEDS: FUROSEMIDE 40MG/4ML VIAL IVP SCH ×2 (08:56→17:00)
[2021-03-22] MEDS ORDERED: POTASSIUM CHLORIDE 20MEQ TABLET SR PO SCH (09:00)
[2021-03-22] MEDS ORDERED: FUROSEMIDE 40MG TABLET PO SCH (09:00)
[2021-03-23] MEDS ORDERED: ATORVASTATIN CALCIUM 40MG TABLET PO SCH (21:00)
== END 2021-03-22 18:40 | disposition home health service (06) | DRG 48 ==
LOC: ER 20:53 → 3WST 03-19 02:45 → ENRESERV 03-19 03:19 → 3WST 03-21 23:41
PROVIDERS: ADMIT Internal Medicine; ATTEND Internal Medicine
DX: E11.43 Type 2 diabetes mellitus with diabetic autonomic (poly)neuropathy (principal); N17.0 Acute kidney failure with tubular necrosis; E43 Unspecified severe protein-calorie malnutrition; I50.23 Acute on chronic systolic (congestive) heart failure; I13.0 Hypertensive heart and chronic kidney disease with heart failure and stage 1 through stage 4 chronic kidney disease, or unspecified chronic kidney disease; K31.84 Gastroparesis; I27.20 Pulmonary hypertension, unspecified; E11.22 Type 2 diabetes mellitus with diabetic chronic kidney disease; I65.22 Occlusion and stenosis of left carotid artery; I42.9 Cardiomyopathy, unspecified; I25.10 Atherosclerotic heart disease of native coronary artery without angina pectoris; D64.9 Anemia, unspecified; E66.9 Obesity, unspecified; E87.6 Hypokalemia; G89.29 Other chronic pain; K57.90 Diverticulosis of intestine, part unspecified, without perforation or abscess without bleeding; R74.01 Elevation of levels of liver transaminase levels; K80.20 Calculus of gallbladder without cholecystitis without obstruction; E80.6 Other disorders of bilirubin metabolism; N18.9 Chronic kidney disease, unspecified; I25.2 Old myocardial infarction; Z86.16 Personal history of COVID-19; Z86.711 Personal history of pulmonary embolism; Z86.718 Personal history of other venous thrombosis and embolism; Z86.73 Personal history of transient ischemic attack (TIA), and cerebral infarction without residual deficits; Z91.19 Patient's noncompliance with other medical treatment and regimen; Z79.01 Long term (current) use of anticoagulants; Z79.899 Other long term (current) drug therapy; Z79.84 Long term (current) use of oral hypoglycemic drugs; Z68.32 Body mass index [BMI] 32.0-32.9, adult; J90 Pleural effusion, not elsewhere classified
CPT/HCPCS: 36415; 71045; 74181; 80048; 80053; 80076; 80320; 81003; 82248; 82962; 83036; 83735; 83880; 84484; 85025; 85027; 86850; 86900; 93005; 93970; 97116; 97162; 97166; 99291; C9113; J1650; J1885; J1940; J2270; J2405; J2765; J7030; G0480

== ENCOUNTER 2021-05-03 15:50 | Inpatient (IN) | payer MEDICARE ==
[~2021-05-03] VITALS: Ht 185.4 cm; Wt 95.3 kg
[~2021-05-03 15:50] MED LIST changes: -APIX5TAB PO; -COR6 PO; -FURO-151 MT; -FURO-152 MT; -LISI-186 PO
[2021-05-03] MEDS ORDERED: VANCOMYCIN 1 G PREMIX 200 ML IV ONE (16:30)
[2021-05-03] MEDS ORDERED: PIPERACILLIN/TAZ 3.375G PREMIX 50 ML IV ONE (16:30)
[2021-05-03 17:50] LABS: CHLORIDE 96 mEq/L (98-107)
[2021-05-03 17:55] LABS: D-DIMER 12.29 mg/L FEU (<0.50); INR 3.5
[2021-05-03] MEDS ORDERED: SODIUM CHLORIDE 0.9% 1000ML BAG (SEPSIS BOLUS) IV ONE (18:00)
[2021-05-03 19:36] LABS: BASOPHILS % 0.4 % (0.0-2.0); HEMATOCRIT. 37.6 % (42.0-52.0); HEMOGLOBIN. 12.3 g/dL (14.0-18.0); LYMPHOCYTES % 20.2 % (20.0-50.0); MEAN CORPUSCULAR HEMOGLOBIN 31.2 pg (28.0-32.0); MEAN CORPUSCULAR VOLUME 95.5 fL (80.0-94.0); MEAN PLATELET VOLUME 10.7 fl (7.4-10.4); MONOCYTES % 3.8 % (2.0-8.0); NEUTROPHILS % 75.6 % (40.0-76.0); RED BLOOD CELL COUNT 3.94 mill/uL (4.7-6.1); RED CELL DISTRIBUTION WIDTH 21.9 % (11.6-14.6)
[2021-05-03] MEDS ORDERED: IOHEXOL-300 100 ML BOTTLE ONE (19:43)
[2021-05-03] MEDS ORDERED: FUROSEMIDE 40MG/4ML VIAL IVP ONE (20:30)
[2021-05-04] VITALS (8 sets, daily range): BP systolic 83–119; BP diastolic 40–97
[2021-05-04 03:26] LABS: CLARITY URINE CLOUDY (CLEAR); COLOR URINE DARK YELLOW (YELLOW); KETONES URINE NEGATIVE (NEGATIVE); LEUKOCYTE ESTERASE URINE TRACE (NEGATIVE); NITRITE URINE POSITIVE (NEGATIVE); OCCULT BLOOD URINE 2+ (NEGATIVE); PH URINE 5.5 (4.5-8.0); PROTEIN URINE 3+ (NEGATIVE); SPECIFIC GRAVITY URINE 1.064 (1.005-1.030)
[2021-05-04] MEDS ORDERED: ACETAMINOPHEN 325MG TABLET PO PRN (12:30)
[2021-05-04] MEDS ORDERED: CLONIDINE 0.1MG TABLET PO PRN (12:30)
[2021-05-04] MEDS ORDERED: HYDROCODONE/ACETAMINOPHEN 5/325MG TABLET PO PRN (12:30)
[2021-05-04] MEDS ORDERED: NALOXONE HCL 0.4MG/ML VIAL IV PRN (13:00)
[2021-05-04] MEDS ORDERED: DEXTROSE 5% WATER 1,000 ML IV SCH (13:00)
[2021-05-04 13:01] LABS: PLATELET 25 x1000/uL (130-400)
[2021-05-04] MEDS: CEFTRIAXONE 1,000 MG in DEXTROSE 5% WATER 50 ML IV SCH (15:21)
[2021-05-04] MEDS ORDERED: DEXTROSE 50% WATER 50ML SYRINGE IV PRN (16:30)
[2021-05-04] MEDS: BLOOD SUGAR DIAGNOSTIC STRIP TEST SCH ×2 (17:05→21:00)
[2021-05-04] MEDS: INSULIN LISPRO 100 UNITS/ML SUBCUT SCH ×2 (17:06→21:00)
[2021-05-04] MEDS ORDERED: CARV3.1242 MT (17:39)
[2021-05-04] MEDS ORDERED: ASPI-1497 MT (17:39)
[2021-05-04 18:28] LABS: BASOPHILS % 0.5 % (0.0-2.0); EOSINOPHILS % 1.7 % (0.0-5.0); HEMATOCRIT. 42.8 % (42.0-52.0); HEMOGLOBIN. 12.5 g/dL (14.0-18.0); LYMPHOCYTES % 23.3 % (20.0-50.0); MEAN CORPUSCULAR HEMOGLOBIN 31.5 pg (28.0-32.0); MEAN CORPUSCULAR VOLUME 107.9 fL (80.0-94.0); MEAN PLATELET VOLUME 9.5 fl (7.4-10.4); MONOCYTES % 2.4 % (2.0-8.0); NEUTROPHILS % 72.1 % (40.0-76.0); RED BLOOD CELL COUNT 3.97 mill/uL (4.7-6.1); RED CELL DISTRIBUTION WIDTH 23.5 % (11.6-14.6)
[2021-05-04 18:37] LABS: CHLORIDE 96 mEq/L (98-107)
[2021-05-04 18:41] LABS: PLATELET 23 x1000/uL (130-400)
[2021-05-04] MEDS ORDERED: PIPERACILLIN/TAZOBACTAM 3.375 G/VIAL IV SCH (22:00)
[2021-05-04] MEDS ORDERED: VANCOMYCIN 1 G PREMIX 200 ML IV SCH (22:30)
[2021-05-04] MEDS ORDERED: PIPERACILLIN/TAZOBACTAM 3.375G in DEXT 5% WATER 50ML IV SCH (23:00)
[2021-05-04 23:44] LABS: BASOPHILS % 1.1 % (0.0-2.0); EOSINOPHILS % 2.9 % (0.0-5.0); HEMATOCRIT. 40.8 % (42.0-52.0); HEMOGLOBIN. 12.6 g/dL (14.0-18.0); LYMPHOCYTES % 22.6 % (20.0-50.0); MEAN CORPUSCULAR HEMOGLOBIN 31.7 pg (28.0-32.0); MEAN CORPUSCULAR VOLUME 102.5 fL (80.0-94.0); MEAN PLATELET VOLUME 9.7 fl (7.4-10.4); MONOCYTES % 1.8 % (2.0-8.0); NEUTROPHILS % 71.6 % (40.0-76.0); RED BLOOD CELL COUNT 3.98 mill/uL (4.7-6.1); RED CELL DISTRIBUTION WIDTH 23.3 % (11.6-14.6)
[2021-05-04 23:53] LABS: PLATELET 33 x1000/uL (130-400)
[2021-05-05] VITALS (95 sets, daily range): BP systolic 44–111; BP diastolic 20–68
[2021-05-05] MEDS: PHENYLEPHRINE 100 MG in DEXT 5% WATER 240 ML IV PRN ×2 (03:05→15:38)
[2021-05-05] MEDS: ONDANSETRON HCL 4MG/2ML INJ IV PRN ×2 (03:11→13:54)
[2021-05-05 06:06] LABS: PHOSPHORUS 6.3 mg/dL (2.5-4.9)
[2021-05-05 06:09] LABS: T4 FREE 1.7 ng/dL (0.76-1.46)
[2021-05-05 06:25] LABS: HEPATITIS B SURFACE ANTIGEN NEGATIVE
[2021-05-05 06:28] LABS: BASOPHILS % 0.3 % (0.0-2.0); EOSINOPHILS % 2.4 % (0.0-5.0); HEMATOCRIT. 39.1 % (42.0-52.0); HEMOGLOBIN. 12.4 g/dL (14.0-18.0); LYMPHOCYTES % 18.8 % (20.0-50.0); MEAN CORPUSCULAR HEMOGLOBIN 31.3 pg (28.0-32.0); MEAN CORPUSCULAR VOLUME 98.4 fL (80.0-94.0); MONOCYTES % 2.2 % (2.0-8.0); NEUTROPHILS % 76.3 % (40.0-76.0); RED BLOOD CELL COUNT 3.97 mill/uL (4.7-6.1); RED CELL DISTRIBUTION WIDTH 22.8 % (11.6-14.6)
[2021-05-05] MEDS: LACTULOSE 20G/30ML UDC PO SCH ×3 (06:54→21:03)
[2021-05-05 06:57] LABS: PLATELET 26 x1000/uL (130-400)
[2021-05-05] MEDS: BLOOD SUGAR DIAGNOSTIC STRIP TEST SCH ×4 (07:03→21:03)
[2021-05-05] MEDS: INSULIN LISPRO 100 UNITS/ML SUBCUT SCH ×4 (07:04→21:35)
[2021-05-05] MEDS: CEFTRIAXONE 1,000 MG in DEXTROSE 5% WATER 50 ML IV SCH (09:13)
[2021-05-05] MEDS: MORPHINE SULFATE 2 MG/ML CPJ (NOT FOR IM USE) IV PRN (09:14)
[2021-05-05] MEDS ORDERED: VANCOMYCIN 750 MG PREMIX 150 ML IV SCH (10:30)
[2021-05-05 11:43] LABS: BG FRACTION INSPIRED OXYGEN 21; BG HCO3 ACT 11.4 mmol/L (22.0-26.0); BG PCO2 21.8 mmHg (35.0-45.0); BG PH 7.337 (7.350-7.450); BG SAMPLE SITE RIGHT RADIAL; BG VENT MODE ROOM AIR
[2021-05-05] MEDS ORDERED: SODIUM BICARBONATE 8.4% 1 MEQ/ML 50ML SYR IV NR (12:15)
[2021-05-05] MEDS ORDERED: LIDOCAINE HCL 1% 20ML VIAL (Pyxis) INJ ONE (12:49)
[2021-05-05] MEDS ORDERED: SODIUM BICARBONATE 8.4% 1 MEQ/ML 50ML SYR IV SCH (13:30)
[2021-05-05] MEDS: CITRIC ACID/SODIUM CITRATE SOLN 30ML UDC PO SCH ×2 (13:54→21:03)
[2021-05-05] MEDS: SODIUM BICARBONATE 150 MEQ in DEXTROSE 5% WATER 1,000 ML IV SCH (14:16)
[2021-05-05] MEDS ORDERED: SODIUM BICARBONATE 100 MEQ in SODIUM CHLORIDE 0.45% 1,000 ML IV SCH (14:30)
[2021-05-05] MEDS ORDERED: VANCOMYCIN 1 G PREMIX 200 ML IV SCH (21:00)
[2021-05-06] VITALS (80 sets, daily range): BP systolic 86–112; BP diastolic 48–76
[2021-05-06] MEDS: PHENYLEPHRINE 100 MG in DEXT 5% WATER 240 ML IV PRN ×2 (02:40→12:09)
[2021-05-06] MEDS: SODIUM BICARBONATE 150 MEQ in DEXTROSE 5% WATER 1,000 ML IV SCH (03:26)
[2021-05-06 05:22] LABS: CHLORIDE 92 mEq/L (98-107)
[2021-05-06 05:30] LABS: PHOSPHORUS 3.5 mg/dL (2.5-4.9)
[2021-05-06] MEDS: CITRIC ACID/SODIUM CITRATE SOLN 30ML UDC PO SCH (06:00)
[2021-05-06] MEDS: LACTULOSE 20G/30ML UDC PO SCH ×3 (06:00→21:22)
[2021-05-06 06:25] LABS: BASOPHILS % 0.1 % (0.0-2.0); EOSINOPHILS % 0.3 % (0.0-5.0); HEMATOCRIT. 36.9 % (42.0-52.0); HEMOGLOBIN. 12.5 g/dL (14.0-18.0); MEAN CORPUSCULAR HEMOGLOBIN 31.7 pg (28.0-32.0); MEAN CORPUSCULAR VOLUME 93.4 fL (80.0-94.0); MEAN PLATELET VOLUME 9.5 fl (7.4-10.4); MONOCYTES % 5.1 % (2.0-8.0); NEUTROPHILS % 86.5 % (40.0-76.0); RED BLOOD CELL COUNT 3.95 mill/uL (4.7-6.1); RED CELL DISTRIBUTION WIDTH 21.8 % (11.6-14.6)
[2021-05-06 06:35] LABS: PLATELET 29 x1000/uL (130-400)
[2021-05-06] MEDS: BLOOD SUGAR DIAGNOSTIC STRIP TEST SCH ×4 (07:03→21:22)
[2021-05-06] MEDS: INSULIN LISPRO 100 UNITS/ML SUBCUT SCH ×3 (07:04→21:00)
[2021-05-06] MEDS ORDERED: PANTOPRAZOLE SODIUM 40 MG/VIAL IV SCH (09:00)
[2021-05-06] MEDS: PANTOPRAZOLE SODIUM 40 MG/VIAL IV SCH ×2 (09:13→21:22)
[2021-05-06] MEDS: SUCRALFATE 1 G/10 ML UDC PO SCH ×4 (09:13→21:22)
[2021-05-06] MEDS: CEFTRIAXONE 1,000 MG in DEXTROSE 5% WATER 50 ML IV SCH (09:13)
[2021-05-06 09:45] LABS: BG BASE EXCESS 4.2 mmol/L (-2.0-2.0); BG CARBOXYHEMOGLOBIN 0.8 % (0.5-1.5); BG DEOXYHEMOGLOBIN 0.4 % (0.0-5.0); BG FRACTION INSPIRED OXYGEN 44; BG HCO3 ACT 28.3 mmol/L (22.0-26.0); BG METHEMOGLOBIN 0.4 % (0.0-1.5); BG OXYGEN SATURATION 99.6 % (92.0-98.5); BG OXYHEMOGLOBIN 98.4 % (94.0-97.0); BG PCO2 40.2 mmHg (35.0-45.0); BG PH 7.465 (7.350-7.450); BG PO2 233.3 mmHg (75.0-100.0); BG SAMPLE SITE RIGHT RADIAL; BG TOTAL HEMOGLOBIN 12.8 g/dL (12.0-18.0); BG VENT MODE NASAL CANNULA
[2021-05-06] MEDS: MIDODRINE HCL 5MG TABLET PO SCH ×3 (09:51→17:40)
[2021-05-06] MEDS ORDERED: LIDOCAINE HCL/PF 1% 2ML VIAL ONE (12:00)
[2021-05-07] VITALS (94 sets, daily range): BP systolic 86–116; BP diastolic 50–91
[2021-05-07] MEDS: PHENYLEPHRINE 100 MG in DEXT 5% WATER 240 ML IV PRN ×2 (00:27→11:56)
[2021-05-07 05:38] LABS: BASOPHILS % 0.5 % (0.0-2.0); EOSINOPHILS % 0.2 % (0.0-5.0); HEMATOCRIT. 36.8 % (42.0-52.0); HEMOGLOBIN. 12.5 g/dL (14.0-18.0); LYMPHOCYTES % 15.8 % (20.0-50.0); MEAN CORPUSCULAR HEMOGLOBIN 31.3 pg (28.0-32.0); MEAN CORPUSCULAR VOLUME 92.2 fL (80.0-94.0); MEAN PLATELET VOLUME 9.7 fl (7.4-10.4); MONOCYTES % 3.8 % (2.0-8.0); NEUTROPHILS % 79.7 % (40.0-76.0); RED BLOOD CELL COUNT 3.99 mill/uL (4.7-6.1); RED CELL DISTRIBUTION WIDTH 21.9 % (11.6-14.6)
[2021-05-07 05:44] LABS: CHLORIDE 94 mEq/L (98-107)
[2021-05-07 06:02] LABS: PHOSPHORUS 2.2 mg/dL (2.5-4.9)
[2021-05-07] MEDS: SUCRALFATE 1 G/10 ML UDC PO SCH ×4 (06:02→21:27)
[2021-05-07] MEDS: LACTULOSE 20G/30ML UDC PO SCH ×3 (06:02→22:00)
[2021-05-07] MEDS: BLOOD SUGAR DIAGNOSTIC STRIP TEST SCH ×4 (06:03→21:28)
[2021-05-07 06:37] LABS: PLATELET 28 x1000/uL (130-400)
[2021-05-07] MEDS: INSULIN LISPRO 100 UNITS/ML SUBCUT SCH ×4 (07:00→21:00)
[2021-05-07] MEDS ORDERED: POTASSIUM-SODIUM PHOSPHATE POWDER PACKET PO NR (08:15)
[2021-05-07] MEDS ORDERED: SODIUM PHOS,M-BASIC-D-BASIC 30 MM in DEXT 5% WATER 500 ML IV NR (10:00)
[2021-05-07] MEDS: PANTOPRAZOLE SODIUM 40 MG/VIAL IV SCH ×2 (10:15→21:27)
[2021-05-07] MEDS: MIDODRINE HCL 5MG TABLET PO SCH ×3 (10:15→17:10)
[2021-05-07] MEDS ORDERED: IPRATROPIUM BROMIDE (0.02%) 0.5MG/2.5ML NEB HHN PRN (10:15)
[2021-05-07] MEDS: DOBUTAMINE 250 MG PREMIX 250 ML IV SCH ×2 (10:15→22:37)
[2021-05-07 10:47] LABS: BG CARBOXYHEMOGLOBIN 1.8 % (0.5-1.5); BG DEOXYHEMOGLOBIN 1.9 % (0.0-5.0); BG FRACTION INSPIRED OXYGEN 21; BG HCO3 ACT 29.3 mmol/L (22.0-26.0); BG METHEMOGLOBIN 0.3 % (0.0-1.5); BG OXYGEN SATURATION 98.1 % (92.0-98.5); BG PH 7.505 (7.350-7.450); BG PO2 98.8 mmHg (75.0-100.0); BG SAMPLE SITE RIGHT RADIAL; BG TOTAL HEMOGLOBIN 13.4 g/dL (12.0-18.0); BG VENT MODE ROOM AIR
[2021-05-07] MEDS: CEFTRIAXONE 1,000 MG in DEXTROSE 5% WATER 50 ML IV SCH (13:16)
[2021-05-07 13:17] LABS: INR 3.4; PROTHROMBIN TIME 32.9 sec (9.6-11.0)
[2021-05-07] MEDS: MORPHINE SULFATE 2 MG/ML CPJ (NOT FOR IM USE) IV PRN (13:17)
[2021-05-07 15:37] LABS: CHLORIDE 97 mEq/L (98-107)
[2021-05-08] VITALS (86 sets, daily range): BP systolic 96–116; BP diastolic 39–84
[2021-05-08] MEDS: LACTULOSE 20G/30ML UDC PO SCH ×3 (06:00→22:10)
[2021-05-08 06:09] LABS: BASOPHILS % 0.2 % (0.0-2.0); EOSINOPHILS % 0.2 % (0.0-5.0); HEMATOCRIT. 35.9 % (42.0-52.0); LYMPHOCYTES % 14.5 % (20.0-50.0); MEAN CORPUSCULAR HEMOGLOBIN 31.1 pg (28.0-32.0); MEAN CORPUSCULAR VOLUME 93.1 fL (80.0-94.0); MONOCYTES % 5.2 % (2.0-8.0); NEUTROPHILS % 79.9 % (40.0-76.0); RED BLOOD CELL COUNT 3.86 mill/uL (4.7-6.1); RED CELL DISTRIBUTION WIDTH 22.2 % (11.6-14.6)
[2021-05-08] MEDS: INSULIN LISPRO 100 UNITS/ML SUBCUT SCH ×4 (06:16→20:34)
[2021-05-08] MEDS: BLOOD SUGAR DIAGNOSTIC STRIP TEST SCH ×4 (06:16→20:34)
[2021-05-08] MEDS: SUCRALFATE 1 G/10 ML UDC PO SCH ×4 (06:18→20:26)
[2021-05-08 06:33] LABS: PHOSPHORUS 2.3 mg/dL (2.5-4.9)
[2021-05-08 07:44] LABS: PLATELET 32 x1000/uL (130-400)
[2021-05-08] MEDS: PANTOPRAZOLE SODIUM 40 MG/VIAL IV SCH ×2 (09:19→20:27)
[2021-05-08] MEDS: CEFTRIAXONE 1,000 MG in DEXTROSE 5% WATER 50 ML IV SCH (09:20)
[2021-05-08] MEDS: MIDODRINE HCL 5MG TABLET PO SCH ×3 (09:20→17:21)
[2021-05-08] MEDS: PHENYLEPHRINE 100 MG in DEXT 5% WATER 240 ML IV PRN ×3 (10:11→21:18)
[2021-05-08 10:55] LABS: PLATELET ESTIMATE MARKEDLY DECREASED
[2021-05-08] MEDS: DOBUTAMINE 250 MG PREMIX 250 ML IV SCH (11:16)
[2021-05-08] MEDS: DOBUTAMINE 250MG PREMIX 250 ML IV SCH ×2 (15:04→17:29)
[2021-05-09] VITALS (85 sets, daily range): BP systolic 91–131; BP diastolic 59–90
[2021-05-09] MEDS: DOBUTAMINE 250MG PREMIX 250 ML IV SCH ×3 (02:48→17:51)
[2021-05-09] MEDS: LACTULOSE 20G/30ML UDC PO SCH ×3 (06:07→21:14)
[2021-05-09] MEDS: SUCRALFATE 1 G/10 ML UDC PO SCH ×4 (06:07→21:14)
[2021-05-09] MEDS: BLOOD SUGAR DIAGNOSTIC STRIP TEST SCH ×4 (06:14→21:14)
[2021-05-09] MEDS: INSULIN LISPRO 100 UNITS/ML SUBCUT SCH ×4 (06:14→21:00)
[2021-05-09] MEDS: PHENYLEPHRINE 100 MG in DEXT 5% WATER 240 ML IV PRN ×2 (07:33→17:50)
[2021-05-09] MEDS: MIDODRINE HCL 5MG TABLET PO SCH ×3 (09:54→17:52)
[2021-05-09] MEDS: PANTOPRAZOLE SODIUM 40 MG/VIAL IV SCH ×2 (09:54→21:14)
[2021-05-09 13:43] LABS: CHLORIDE 95 mEq/L (98-107)
[2021-05-09] MEDS: MORPHINE SULFATE 2 MG/ML CPJ (NOT FOR IM USE) IV PRN (17:53)
[2021-05-10] VITALS (90 sets, daily range): BP systolic 77–140; BP diastolic 28–100
[2021-05-10] MEDS: DOBUTAMINE 250MG PREMIX 250 ML IV SCH ×3 (03:24→16:24)
[2021-05-10] MEDS: PHENYLEPHRINE 100 MG in DEXT 5% WATER 240 ML IV PRN (05:27)
[2021-05-10 05:38] LABS: BASOPHILS % 0.4 % (0.0-2.0); EOSINOPHILS % 1.1 % (0.0-5.0); HEMATOCRIT. 34.6 % (42.0-52.0); HEMOGLOBIN. 11.9 g/dL (14.0-18.0); LYMPHOCYTES % 17.4 % (20.0-50.0); MEAN CORPUSCULAR VOLUME 92.8 fL (80.0-94.0); MONOCYTES % 12.1 % (2.0-8.0); RED BLOOD CELL COUNT 3.73 mill/uL (4.7-6.1); RED CELL DISTRIBUTION WIDTH 22.4 % (11.6-14.6)
[2021-05-10 05:50] LABS: CHLORIDE 95 mEq/L (98-107)
[2021-05-10 05:58] LABS: PHOSPHORUS 1.6 mg/dL (2.5-4.9)
[2021-05-10 06:34] LABS: PLATELET 43 x1000/uL (130-400)
[2021-05-10] MEDS ORDERED: POTASSIUM CHLORIDE 20MEQ TABLET SR PO NR (07:00)
[2021-05-10] MEDS: BLOOD SUGAR DIAGNOSTIC STRIP TEST SCH ×4 (07:50→21:39)
[2021-05-10] MEDS: ONDANSETRON HCL 4MG/2ML INJ IV PRN (07:51)
[2021-05-10] MEDS: INSULIN LISPRO 100 UNITS/ML SUBCUT SCH ×4 (08:16→21:00)
[2021-05-10] MEDS: SUCRALFATE 1 G/10 ML UDC PO SCH ×4 (08:58→20:03)
[2021-05-10] MEDS: MIDODRINE HCL 5MG TABLET PO SCH ×3 (08:59→17:52)
[2021-05-10] MEDS: PANTOPRAZOLE SODIUM 40 MG/VIAL IV SCH ×2 (08:59→20:03)
[2021-05-10] MEDS ORDERED: POTASSIUM PHOS,M-BASIC-D-BASIC 15 MMOL in DEXT 5% WATER 245 ML IV NR (09:00)
[2021-05-10] MEDS ORDERED: MAGNESIUM 2 G PREMIX 50 ML IV NR (09:00)
[2021-05-10] MEDS ORDERED: POTASSIUM CHLORIDE INJ 40 MEQ in DEXT 5% WATER 250 ML IV NR (11:00)
[2021-05-11] VITALS (65 sets, daily range): BP systolic 98–150; BP diastolic 63–90
[2021-05-11] MEDS: DOBUTAMINE 250MG PREMIX 250 ML IV SCH ×2 (00:34→09:15)
[2021-05-11 01:38] LABS: PHOSPHORUS 1.4 mg/dL (2.5-4.9)
[2021-05-11] MEDS: POTASSIUM CHLORIDE 20MEQ/PACKET PO NR ×2 (02:31→02:37)
[2021-05-11] MEDS ORDERED: MAGNESIUM 4 G PREMIX 100 ML IV NR (06:00)
[2021-05-11 06:22] LABS: CHLORIDE 95 mEq/L (98-107)
[2021-05-11 06:30] LABS: PHOSPHORUS 1.4 mg/dL (2.5-4.9)
[2021-05-11 07:39] LABS: HEMATOCRIT. 32.6 % (42.0-52.0); HEMOGLOBIN. 11.2 g/dL (14.0-18.0); MEAN CORPUSCULAR HEMOGLOBIN 31.7 pg (28.0-32.0); MEAN CORPUSCULAR VOLUME 92.8 fL (80.0-94.0); MEAN PLATELET VOLUME 9.6 fl (7.4-10.4); RED BLOOD CELL COUNT 3.52 mill/uL (4.7-6.1); RED CELL DISTRIBUTION WIDTH 22.2 % (11.6-14.6)
[2021-05-11 07:46] LABS: PLATELET 27 x1000/uL (130-400)
[2021-05-11] MEDS: BLOOD SUGAR DIAGNOSTIC STRIP TEST SCH ×4 (07:50→21:16)
[2021-05-11] MEDS: INSULIN LISPRO 100 UNITS/ML SUBCUT SCH ×4 (07:54→21:00)
[2021-05-11] MEDS ORDERED: POTASSIUM PHOS,M-BASIC-D-BASIC 20 MMOL in DEXT 5% WATER 243.3333 ML IV NR (08:00)
[2021-05-11] MEDS: PANTOPRAZOLE SODIUM 40 MG/VIAL IV SCH ×2 (08:57→21:17)
[2021-05-11] MEDS: SUCRALFATE 1 G/10 ML UDC PO SCH ×4 (08:57→21:18)
[2021-05-11] MEDS: MIDODRINE HCL 5MG TABLET PO SCH ×3 (08:58→16:53)
[2021-05-11] MEDS ORDERED: POTASSIUM CHLORIDE INJ 40 MEQ in DEXT 5% WATER 250 ML IV ONE (13:00)
[2021-05-11 17:59] LABS: PLATELET ESTIMATE MARKEDLY DECREASED
[2021-05-12] VITALS (13 sets, daily range): BP systolic 95–114; BP diastolic 66–79
[2021-05-12] MEDS: SUCRALFATE 1 G/10 ML UDC PO SCH ×4 (06:09→20:47)
[2021-05-12] MEDS: BLOOD SUGAR DIAGNOSTIC STRIP TEST SCH ×2 (06:09→11:50)
[2021-05-12] MEDS: INSULIN LISPRO 100 UNITS/ML SUBCUT SCH ×2 (07:20→12:20)
[2021-05-12 08:13] LABS: BASOPHILS % 0.4 % (0.0-2.0); EOSINOPHILS % 1.3 % (0.0-5.0); HEMATOCRIT. 32.8 % (42.0-52.0); HEMOGLOBIN. 11.3 g/dL (14.0-18.0); LYMPHOCYTES % 30.6 % (20.0-50.0); MEAN CORPUSCULAR HEMOGLOBIN 32.3 pg (28.0-32.0); MEAN CORPUSCULAR VOLUME 93.5 fL (80.0-94.0); MEAN PLATELET VOLUME 9.8 fl (7.4-10.4); MONOCYTES % 6.3 % (2.0-8.0); NEUTROPHILS % 61.4 % (40.0-76.0); PLATELET 53 x1000/uL (130-400); RED CELL DISTRIBUTION WIDTH 22.8 % (11.6-14.6)
[2021-05-12 08:37] LABS: CHLORIDE 93 mEq/L (98-107)
[2021-05-12 08:44] LABS: PHOSPHORUS 1.6 mg/dL (2.5-4.9)
[2021-05-12] MEDS: MIDODRINE HCL 5MG TABLET PO SCH ×3 (09:54→16:34)
[2021-05-12] MEDS: PANTOPRAZOLE SODIUM 40 MG/VIAL IV SCH ×2 (09:54→20:47)
[2021-05-12] MEDS ORDERED: FUROSEMIDE 20MG/2ML VIAL IVP SCH (13:15)
[2021-05-12] MEDS ORDERED: MAGNESIUM 2 G PREMIX 50 ML IV SCH (15:00)
[2021-05-12] MEDS ORDERED: SODIUM PHOS,M-BASIC-D-BASIC 30 MM in DEXT 5% WATER 500 ML IV SCH (15:00)
[2021-05-13] VITALS (11 sets, daily range): BP systolic 96–112; BP diastolic 27–87
[2021-05-13] MEDS: SUCRALFATE 1 G/10 ML UDC PO SCH ×4 (06:41→20:27)
[2021-05-13 06:59] LABS: CHLORIDE 93 mEq/L (98-107)
[2021-05-13 07:14] LABS: PHOSPHORUS 2.5 mg/dL (2.5-4.9)
[2021-05-13 07:16] LABS: BASOPHILS % 0.5 % (0.0-2.0); EOSINOPHILS % 1.3 % (0.0-5.0); HEMATOCRIT. 33.8 % (42.0-52.0); HEMOGLOBIN. 11.3 g/dL (14.0-18.0); LYMPHOCYTES % 28.5 % (20.0-50.0); MEAN CORPUSCULAR HEMOGLOBIN 32.1 pg (28.0-32.0); MEAN CORPUSCULAR VOLUME 95.5 fL (80.0-94.0); MEAN PLATELET VOLUME 10.2 fl (7.4-10.4); MONOCYTES % 5.3 % (2.0-8.0); NEUTROPHILS % 64.4 % (40.0-76.0); PLATELET 56 x1000/uL (130-400); RED BLOOD CELL COUNT 3.54 mill/uL (4.7-6.1); RED CELL DISTRIBUTION WIDTH 23.1 % (11.6-14.6)
[2021-05-13] MEDS: MIDODRINE HCL 5MG TABLET PO SCH ×3 (09:31→18:17)
[2021-05-13] MEDS: PANTOPRAZOLE SODIUM 40 MG/VIAL IV SCH ×2 (09:31→20:27)
[2021-05-13] MEDS: FUROSEMIDE 40MG/4ML VIAL IVP SCH (09:32)
[2021-05-13] MEDS ORDERED: POTASSIUM CHLORIDE 20MEQ TABLET SR PO SCH (12:00)
[2021-05-14] VITALS (10 sets, daily range): BP systolic 93–112; BP diastolic 55–76
[2021-05-14] MEDS: SUCRALFATE 1 G/10 ML UDC PO SCH ×4 (06:15→21:00)
[2021-05-14 07:07] LABS: BASOPHILS % 0.4 % (0.0-2.0); EOSINOPHILS % 0.8 % (0.0-5.0); HEMATOCRIT. 32.8 % (42.0-52.0); HEMOGLOBIN. 10.9 g/dL (14.0-18.0); MEAN CORPUSCULAR HEMOGLOBIN 31.8 pg (28.0-32.0); MEAN CORPUSCULAR VOLUME 95.3 fL (80.0-94.0); MEAN PLATELET VOLUME 10.2 fl (7.4-10.4); MONOCYTES % 3.8 % (2.0-8.0); PLATELET 65 x1000/uL (130-400); RED BLOOD CELL COUNT 3.44 mill/uL (4.7-6.1); RED CELL DISTRIBUTION WIDTH 23.3 % (11.6-14.6)
[2021-05-14 07:15] LABS: CHLORIDE 94 mEq/L (98-107)
[2021-05-14 07:20] LABS: PHOSPHORUS 2.2 mg/dL (2.5-4.9)
[2021-05-14] MEDS ORDERED: VISCOUS LIDOCAINE 2% 15 ML UDC MM PRN (08:30)
[2021-05-14] MEDS ORDERED: POTASSIUM-SODIUM PHOSPHATE POWDER PACKET PO SCH (08:30)
[2021-05-14] MEDS: POTASSIUM CHLORIDE 20MEQ/PACKET PO SCH (08:57)
[2021-05-14] MEDS ORDERED: POTASSIUM CHLORIDE INJ 40 MEQ in DEXT 5% WATER 250 ML IV ONE (09:00)
[2021-05-14] MEDS: PANTOPRAZOLE SODIUM 40 MG/VIAL IV SCH ×2 (09:09→21:00)
[2021-05-14] MEDS: FUROSEMIDE 40MG/4ML VIAL IVP SCH (09:09)
[2021-05-14] MEDS: MIDODRINE HCL 5MG TABLET PO SCH ×3 (09:21→16:52)
[2021-05-14] MEDS: KCL 20MEQ/100ML PREMIX 100 ML IV SCH ×2 (09:57→11:56)
[2021-05-14] MEDS ORDERED: MAGNESIUM 2 G PREMIX 50 ML IV SCH (10:00)
[2021-05-14] MEDS ORDERED: BENZOCAINE (ORAJEL) PASTE TOP PRN (10:00)
[2021-05-14] MEDS ORDERED: MAGNESIUM 4 G PREMIX 100 ML IV NR (11:00)
[2021-05-14] MEDS ORDERED: MAGNESIUM 2 G PREMIX 50 ML IV NR (11:00)
[2021-05-15] VITALS (9 sets, daily range): BP systolic 83–105; BP diastolic 51–79
[2021-05-15] MEDS: SUCRALFATE 1 G/10 ML UDC PO SCH ×4 (06:25→20:50)
[2021-05-15 08:59] LABS: CHLORIDE 98 mEq/L (98-107)
[2021-05-15] MEDS: POTASSIUM CHLORIDE 20MEQ/PACKET PO SCH (09:00)
[2021-05-15] MEDS: PANTOPRAZOLE SODIUM 40 MG/VIAL IV SCH ×2 (09:00→20:50)
[2021-05-15 09:04] LABS: PHOSPHORUS 2.3 mg/dL (2.5-4.9)
[2021-05-15 09:09] LABS: BASOPHILS % 0.5 % (0.0-2.0); EOSINOPHILS % 0.6 % (0.0-5.0); HEMATOCRIT. 31.8 % (42.0-52.0); HEMOGLOBIN. 10.8 g/dL (14.0-18.0); LYMPHOCYTES % 24.1 % (20.0-50.0); MEAN CORPUSCULAR HEMOGLOBIN 32.3 pg (28.0-32.0); MEAN CORPUSCULAR VOLUME 95.3 fL (80.0-94.0); MEAN PLATELET VOLUME 10.5 fl (7.4-10.4); MONOCYTES % 3.4 % (2.0-8.0); NEUTROPHILS % 71.4 % (40.0-76.0); PLATELET 76 x1000/uL (130-400); RED BLOOD CELL COUNT 3.34 mill/uL (4.7-6.1); RED CELL DISTRIBUTION WIDTH 23.3 % (11.6-14.6)
[2021-05-15] MEDS: FUROSEMIDE 40MG/4ML VIAL IVP SCH (10:12)
[2021-05-15] MEDS: MIDODRINE HCL 5MG TABLET PO SCH ×3 (10:13→18:45)
[2021-05-15] MEDS ORDERED: POTASSIUM CHLORIDE INJ 40 MEQ in DEXT 5% WATER 500 ML IV ONE (10:30)
[2021-05-15] MEDS: SPIRONOLACTONE 25MG TABLET PO SCH (12:43)
[2021-05-15] MEDS: KCL 20MEQ/100ML PREMIX 100 ML IV SCH ×2 (13:05→14:53)
[2021-05-15] MEDS ORDERED: POTASSIUM PHOS,M-BASIC-D-BASIC 20 MMOL in SODIUM CHLORIDE 0.9% 250 ML IV NR (13:30)
[2021-05-15] MEDS ORDERED: MAGNESIUM 2 G PREMIX 50 ML IV NR (14:00)
[2021-05-15] MEDS ORDERED: FURO-151 MT ×2 (16:26)
[2021-05-16 05:59] VITALS: BP 92/68
[2021-05-16] MEDS: SUCRALFATE 1 G/10 ML UDC PO SCH (06:47)
[2021-05-16 08:12] VITALS: BP 84/67
[2021-05-16] MEDS: PANTOPRAZOLE SODIUM 40 MG/VIAL IV SCH (08:30)
[2021-05-16] MEDS: FUROSEMIDE 40MG/4ML VIAL IVP SCH (08:30)
[2021-05-16] MEDS: SPIRONOLACTONE 25MG TABLET PO SCH (08:38)
[2021-05-16] MEDS: POTASSIUM CHLORIDE 20MEQ/PACKET PO SCH (08:39)
[2021-05-16] MEDS: MIDODRINE HCL 5MG TABLET PO SCH ×2 (08:39→13:00)
[2021-05-16] MEDS ORDERED: OMEP20CA14 MT (09:27)
[2021-05-16] MEDS ORDERED: METO-293 MT (09:27)
[2021-05-16] MEDS ORDERED: FURO-151 MT (09:27)
[2021-05-16] MEDS ORDERED: POTA20TA82 MT ×2 (09:27)
[2021-05-16] MEDS ORDERED: MAGN400C MT (09:27)
[2021-05-16 10:00] VITALS: BP 99/70
[2021-05-16 12:00] VITALS: BP 101/69
== END 2021-05-16 14:23 | disposition home health service (06) | DRG 720 ==
LOC: ER 15:50 → EDBEDREQSVC 20:15 → EDBEDREQTM 20:15 → EDBEDREQ 20:15 → MICUSO 21:24 → 3WST 05-04 08:53 → 5EST 05-05 01:32 → MICUNO 05-06 17:32 → CVICU 05-10 02:30 → 3WST 05-11 17:23 → 6EST 05-16 12:18
PROVIDERS: ADMIT Internal Medicine; ATTEND Internal Medicine
PROC: 02HV33Z Insertion of Infusion Device into Superior Vena Cava, Percutaneous Approach (ICD-10-PCS; principal; 2021-05-06)
PROC: B548ZZA Ultrasonography of Superior Vena Cava, Guidance (ICD-10-PCS; 2021-05-06)
DX: A41.9 Sepsis, unspecified organism (principal); I26.99 Other pulmonary embolism without acute cor pulmonale; J96.21 Acute and chronic respiratory failure with hypoxia; D65 Disseminated intravascular coagulation [defibrination syndrome]; K72.00 Acute and subacute hepatic failure without coma; G93.40 Encephalopathy, unspecified; D61.818 Other pancytopenia; E43 Unspecified severe protein-calorie malnutrition; R18.8 Other ascites; N17.0 Acute kidney failure with tubular necrosis; R65.21 Severe sepsis with septic shock; I21.4 Non-ST elevation (NSTEMI) myocardial infarction; D68.9 Coagulation defect, unspecified; E11.22 Type 2 diabetes mellitus with diabetic chronic kidney disease; E11.649 Type 2 diabetes mellitus with hypoglycemia without coma; E83.39 Other disorders of phosphorus metabolism; I27.20 Pulmonary hypertension, unspecified; J18.9 Pneumonia, unspecified organism; E87.1 Hypo-osmolality and hyponatremia; I50.23 Acute on chronic systolic (congestive) heart failure; I31.3 Pericardial effusion (noninflammatory); I42.9 Cardiomyopathy, unspecified; N39.0 Urinary tract infection, site not specified; K76.0 Fatty (change of) liver, not elsewhere classified; I48.0 Paroxysmal atrial fibrillation; D53.9 Nutritional anemia, unspecified; E66.01 Morbid (severe) obesity due to excess calories; E78.5 Hyperlipidemia, unspecified; K21.9 Gastro-esophageal reflux disease without esophagitis; E87.2 Acidosis; I25.10 Atherosclerotic heart disease of native coronary artery without angina pectoris; K80.20 Calculus of gallbladder without cholecystitis without obstruction; G89.29 Other chronic pain; K74.60 Unspecified cirrhosis of liver; L89.026 Pressure-induced deep tissue damage of left elbow; D68.59 Other primary thrombophilia; I82.629 Acute embolism and thrombosis of deep veins of unspecified upper extremity; G40.909 Epilepsy, unspecified, not intractable, without status epilepticus; E78.00 Pure hypercholesterolemia, unspecified; R57.0 Cardiogenic shock; Z20.822 Contact with and (suspected) exposure to COVID-19; I13.0 Hypertensive heart and chronic kidney disease with heart failure and stage 1 through stage 4 chronic kidney disease, or unspecified chronic kidney disease; N18.9 Chronic kidney disease, unspecified; Z86.73 Personal history of transient ischemic attack (TIA), and cerebral infarction without residual deficits; Z88.8 Allergy status to other drugs, medicaments and biological substances; Z79.84 Long term (current) use of oral hypoglycemic drugs; Z79.899 Other long term (current) drug therapy; Z86.16 Personal history of COVID-19; Z86.718 Personal history of other venous thrombosis and embolism; Z91.19 Patient's noncompliance with other medical treatment and regimen; Z86.711 Personal history of pulmonary embolism; Z82.49 Family history of ischemic heart disease and other diseases of the circulatory system; Z83.3 Family history of diabetes mellitus; Z68.27 Body mass index [BMI] 27.0-27.9, adult; Z79.01 Long term (current) use of anticoagulants; T68.XXXA Hypothermia, initial encounter
CPT/HCPCS: 36415; 36600; 70551; 71045; 71260; 74177; 76700; 76937; 80048; 80053; 80061; 80076; 80202; 81003; 82040; 82140; 82248; 82375; 82805; 82962; 83036; 83605; 83735; 84100; 84132; 84134; 84145; 84439; 84443; 84484; 85025; 85379; 85384; 86705; 86709; 86803; 87340; 87426; 92610; 93005; 93306; 93923; 93970; 99291; A6261; C1725; C9113; J0696; J1250; J1815; J1940; J2270; J2370; J2405; J2543; J3370; J3475; J3480; J3490; J7030; J7040; J7060; J7070; Q9967; A4315

== ENCOUNTER 2021-05-22 23:49 | Inpatient (IN) | payer MEDICARE ==
[~2021-05-22] VITALS: Ht 177.8 cm; Wt 100.2 kg
[~2021-05-22 23:49] MED LIST changes: -APIX5TAB MT; +FURO-151 MT; +METO-293 MT; +OMEP20CA14 MT; +POTA20TA82 MT; -SIME80TA14 PO
[2021-05-23] MEDS ORDERED: FUROSEMIDE 40MG/4ML VIAL IV ONE (02:30)
[2021-05-23] MEDS ORDERED: ASPIRIN 81MG TABLET PO ONE (02:30)
[2021-05-23 03:07] LABS: BASOPHILS % 0.8 % (0.0-2.0); EOSINOPHILS % 1.2 % (0.0-5.0); HEMATOCRIT. 43.1 % (42.0-52.0); HEMOGLOBIN. 13.4 g/dL (14.0-18.0); MEAN CORPUSCULAR HEMOGLOBIN 33.1 pg (28.0-32.0); MEAN CORPUSCULAR VOLUME 106.2 fL (80.0-94.0); MEAN PLATELET VOLUME 8.9 fl (7.4-10.4); MONOCYTES % 3.8 % (2.0-8.0); NEUTROPHILS % 50.2 % (40.0-76.0); PLATELET 152 x1000/uL (130-400); RED BLOOD CELL COUNT 4.06 mill/uL (4.7-6.1); RED CELL DISTRIBUTION WIDTH 23.2 % (11.6-14.6)
[2021-05-23 03:18] LABS: CHLORIDE 104 mEq/L (98-107)
[2021-05-23 03:25] LABS: ETHANOL BLOOD < 10 mg/dL
[2021-05-23 05:32] LABS: PLATELET ESTIMATE NORMAL
[2021-05-23 10:58] LABS: CLARITY URINE CLOUDY (CLEAR); COLOR URINE DARK YELLOW (YELLOW); KETONES URINE NEGATIVE (NEGATIVE); LEUKOCYTE ESTERASE URINE 1+ (NEGATIVE); NITRITE URINE POSITIVE (NEGATIVE); OCCULT BLOOD URINE NEGATIVE (NEGATIVE); PROTEIN URINE 2+ (NEGATIVE); SPECIFIC GRAVITY URINE 1.031 (1.005-1.030)
[2021-05-23 11:17] LABS: *AMPHETAMINES SCREEN URINE NEGATIVE (NEGATIVE)
[2021-05-23 11:18] LABS: *BARBITURATES SCREEN URINE NEGATIVE (NEGATIVE); *BENZODIAZEPINES SCREEN URINE NEGATIVE (NEGATIVE); *COCAINE SCREEN URINE NEGATIVE (NEGATIVE); CANNABINOID URINE SCREEN PRESUMTIVE POSITIVE (NEGATIVE); METHADONE URINE SCREEN NEGATIVE (NEGATIVE); OPIATES URINE SCREEN NEGATIVE (NEGATIVE); PHENCYCLIDINE URINE SCREEN NEGATIVE (NEGATIVE)
[2021-05-23] MEDS ORDERED: CEFTRIAXONE 1 G PREMIX 50 ML IV ONE (11:45)
[2021-05-23] MEDS ORDERED: CLONIDINE 0.1MG TABLET PO PRN (12:30)
[2021-05-23] MEDS ORDERED: DIPHENHYDRAMINE 50MG/ML VIAL IV PRN (12:30)
[2021-05-23] MEDS ORDERED: IPRATROPIUM/ALBUTEROL 0.5-3(2.5)MG/3ML NEB HHN PRN (12:30)
[2021-05-23] MEDS ORDERED: ACETAMINOPHEN 325MG TABLET PO PRN (12:30)
[2021-05-23] MEDS ORDERED: CEFTRIAXONE 1 G PREMIX 50 ML IV NR (12:45)
[2021-05-23] MEDS: LISINOPRIL 2.5MG TABLET PO SCH (15:00)
[2021-05-23] MEDS: ASPIRIN 81MG EC TABLET PO SCH (15:00)
[2021-05-23] MEDS ORDERED: CEFTRIAXONE 1 G PREMIX 50 ML IV SCH (16:45)
[2021-05-23] MEDS ORDERED: AMIODARONE HCL 200 MG TABLET PO SCH (17:00)
[2021-05-23] MEDS: FUROSEMIDE 40MG/4ML VIAL IV SCH (17:15)
[2021-05-23] MEDS: AZITHROMYCIN 500 MG in DEXT 5% WATER 250 ML IV SCH (18:00)
[2021-05-23 21:00] VITALS: BP 117/70
[2021-05-23 22:00] VITALS: BP 117/70
[2021-05-23] MEDS: CARVEDILOL 3.125 MG TABLET PO SCH (23:05)
[2021-05-24] VITALS (23 sets, daily range): BP systolic 75–138; BP diastolic 30–100
[2021-05-24] MEDS ORDERED: MAGNESIUM 2 G PREMIX 50 ML IV NR (01:30)
[2021-05-24] MEDS: AMIODARONE HCL 200 MG TABLET PO SCH ×3 (01:56→22:00)
[2021-05-24] MEDS: FUROSEMIDE 40MG/4ML VIAL IV SCH ×2 (07:15→17:15)
[2021-05-24] MEDS: ASPIRIN 81MG EC TABLET PO SCH (09:00)
[2021-05-24] MEDS: CARVEDILOL 3.125 MG TABLET PO SCH (10:06)
[2021-05-24] MEDS: LISINOPRIL 2.5MG TABLET PO SCH ×3 (10:06→20:43)
[2021-05-24] MEDS: CEFTRIAXONE 1,000 MG in DEXTROSE 5% WATER 50 ML IV SCH (14:45)
[2021-05-24] MEDS: AZITHROMYCIN 500 MG in DEXT 5% WATER 250 ML IV SCH (17:55)
[2021-05-24 18:41] LABS: BASOPHILS % 0.9 % (0.0-2.0); EOSINOPHILS % 0.8 % (0.0-5.0); HEMATOCRIT. 31.4 % (42.0-52.0); HEMOGLOBIN. 10.5 g/dL (14.0-18.0); LYMPHOCYTES % 37.4 % (20.0-50.0); MEAN CORPUSCULAR HEMOGLOBIN 33.1 pg (28.0-32.0); MEAN CORPUSCULAR VOLUME 98.7 fL (80.0-94.0); MEAN PLATELET VOLUME 9.6 fl (7.4-10.4); MONOCYTES % 4.9 % (2.0-8.0); PLATELET 155 x1000/uL (130-400); RED BLOOD CELL COUNT 3.18 mill/uL (4.7-6.1)
[2021-05-24] MEDS: ONDANSETRON HCL 4MG/2ML INJ IV PRN (18:45)
[2021-05-24 18:46] LABS: CHLORIDE 104 mEq/L (98-107)
[2021-05-24 18:53] LABS: LDL CHOLESTEROL 97 mg/dL (5-100)
[2021-05-24 18:55] LABS: HDL CHOLESTEROL 13 mg/dL (40-59)
[2021-05-24] MEDS ORDERED: DIPHENHYDRAMINE 50MG/ML VIAL IV NR (19:30)
[2021-05-24] MEDS: CARVEDILOL 6.25 MG TABLET PO SCH (20:42)
[2021-05-24] MEDS ORDERED: NOREPINEPHRINE 8 MG in DEXT 5% WATER 242 ML IV PRN (21:45)
[2021-05-25] VITALS (98 sets, daily range): BP systolic 57–132; BP diastolic 18–93
[2021-05-25] MEDS: NOREPINEPHRINE 32 MG in DEXT 5% WATER 218 ML IV PRN ×2 (00:15→15:03)
[2021-05-25 00:56] LABS: BG BASE EXCESS -3.2 mmol/L (-2.0-2.0); BG CARBOXYHEMOGLOBIN 0.4 % (0.5-1.5); BG DEOXYHEMOGLOBIN 0.3 % (0.0-5.0); BG FRACTION INSPIRED OXYGEN 100; BG METHEMOGLOBIN 0.1 % (0.0-1.5); BG OXYGEN SATURATION 99.7 % (92.0-98.5); BG OXYHEMOGLOBIN 99.2 % (94.0-97.0); BG PCO2 35.2 mmHg (35.0-45.0); BG PH 7.394 (7.350-7.450); BG PO2 420.5 mmHg (75.0-100.0); BG SAMPLE SITE RIGHT RADIAL; BG TOTAL HEMOGLOBIN 12.7 g/dL (12.0-18.0); BG VENT MODE MASK - NRB
[2021-05-25] MEDS: AMIODARONE HCL 200 MG TABLET PO SCH ×2 (05:22→17:24)
[2021-05-25 05:47] LABS: BASOPHILS % 0.8 % (0.0-2.0); HEMATOCRIT. 36.3 % (42.0-52.0); HEMOGLOBIN. 11.9 g/dL (14.0-18.0); LYMPHOCYTES % 26.6 % (20.0-50.0); MEAN CORPUSCULAR HEMOGLOBIN 33.1 pg (28.0-32.0); MEAN CORPUSCULAR VOLUME 101.1 fL (80.0-94.0); MEAN PLATELET VOLUME 9.5 fl (7.4-10.4); MONOCYTES % 4.6 % (2.0-8.0); PLATELET 202 x1000/uL (130-400); RED BLOOD CELL COUNT 3.59 mill/uL (4.7-6.1); RED CELL DISTRIBUTION WIDTH 21.8 % (11.6-14.6)
[2021-05-25 05:56] LABS: CHLORIDE 98 mEq/L (98-107)
[2021-05-25] MEDS: FUROSEMIDE 40MG/4ML VIAL IV SCH (07:15)
[2021-05-25] MEDS: ASPIRIN 81MG EC TABLET PO SCH ×2 (08:56→09:00)
[2021-05-25] MEDS: CARVEDILOL 6.25 MG TABLET PO SCH ×2 (08:56→21:00)
[2021-05-25] MEDS: LISINOPRIL 2.5MG TABLET PO SCH ×2 (09:00→21:00)
[2021-05-25] MEDS: CEFTRIAXONE 1,000 MG in DEXTROSE 5% WATER 50 ML IV SCH (11:00)
[2021-05-25] MEDS: DOPAMINE 400MG/250ML PREMIX 250 ML IV PRN (17:26)
[2021-05-26] VITALS (53 sets, daily range): BP systolic 93–134; BP diastolic 36–85
[2021-05-26] MEDS: CARVEDILOL 6.25 MG TABLET PO SCH (09:00)
[2021-05-26] MEDS: LISINOPRIL 2.5MG TABLET PO SCH (09:00)
[2021-05-26] MEDS: ASPIRIN 81MG EC TABLET PO SCH ×2 (09:00→09:37)
[2021-05-26] MEDS: AMIODARONE HCL 200 MG TABLET PO SCH ×2 (09:38→17:50)
[2021-05-26] MEDS: DOPAMINE 400MG/250ML PREMIX 250 ML IV PRN (12:42)
[2021-05-26] MEDS: CEFTRIAXONE 1,000 MG in DEXTROSE 5% WATER 50 ML IV SCH (14:10)
[2021-05-27] VITALS (51 sets, daily range): BP systolic 81–155; BP diastolic 27–85
[2021-05-27 06:26] LABS: BASOPHILS % 0.7 % (0.0-2.0); EOSINOPHILS % 1.6 % (0.0-5.0); HEMATOCRIT. 34.6 % (42.0-52.0); HEMOGLOBIN. 11.4 g/dL (14.0-18.0); MEAN CORPUSCULAR HEMOGLOBIN 32.9 pg (28.0-32.0); MEAN PLATELET VOLUME 8.6 fl (7.4-10.4); MONOCYTES % 7.7 % (2.0-8.0); PLATELET 127 x1000/uL (130-400); RED BLOOD CELL COUNT 3.46 mill/uL (4.7-6.1); RED CELL DISTRIBUTION WIDTH 21.4 % (11.6-14.6)
[2021-05-27 06:31] LABS: CHLORIDE 102 mEq/L (98-107)
[2021-05-27] MEDS: CARVEDILOL 6.25 MG TABLET PO SCH (08:09)
[2021-05-27] MEDS: LISINOPRIL 2.5MG TABLET PO SCH (08:10)
[2021-05-27] MEDS: AMIODARONE HCL 200 MG TABLET PO SCH ×3 (08:10→16:04)
[2021-05-27] MEDS: POTASSIUM CHLORIDE 20MEQ TABLET SR PO SCH ×3 (08:37→08:53)
[2021-05-27] MEDS: CEFTRIAXONE 1,000 MG in DEXTROSE 5% WATER 50 ML IV SCH (09:59)
[2021-05-27] MEDS: ENOXAPARIN 30MG/0.3ML SYR SUBCUT SCH ×2 (12:16→21:00)
[2021-05-27] MEDS ORDERED: KCL 20MEQ/100ML PREMIX 50 ML IV NR (13:00)
[2021-05-27 14:18] LABS: PHOSPHORUS 2.7 mg/dL (2.5-4.9)
[2021-05-27] MEDS: MAGNESIUM OXIDE 400MG TABLET PO SCH (16:04)
[2021-05-27] MEDS: DOPAMINE 400MG/250ML PREMIX 250 ML IV PRN (19:52)
[2021-05-27] MEDS: CARVEDILOL 3.125 MG TABLET PO SCH (21:00)
[2021-05-28] VITALS (33 sets, daily range): BP systolic 83–138; BP diastolic 48–78
[2021-05-28 06:34] LABS: BASOPHILS % 1.1 % (0.0-2.0); EOSINOPHILS % 1.8 % (0.0-5.0); HEMATOCRIT. 34.7 % (42.0-52.0); HEMOGLOBIN. 11.5 g/dL (14.0-18.0); LYMPHOCYTES % 30.3 % (20.0-50.0); MEAN CORPUSCULAR HEMOGLOBIN 32.6 pg (28.0-32.0); MEAN CORPUSCULAR VOLUME 98.8 fL (80.0-94.0); MEAN PLATELET VOLUME 8.9 fl (7.4-10.4); MONOCYTES % 8.8 % (2.0-8.0); PLATELET 110 x1000/uL (130-400); RED BLOOD CELL COUNT 3.51 mill/uL (4.7-6.1)
[2021-05-28 06:43] LABS: CHLORIDE 104 mEq/L (98-107)
[2021-05-28] MEDS: CARVEDILOL 3.125 MG TABLET PO SCH ×2 (07:50→20:50)
[2021-05-28] MEDS: ASPIRIN 81MG EC TABLET PO SCH (08:26)
[2021-05-28] MEDS: AMIODARONE HCL 200 MG TABLET PO SCH ×3 (08:26→19:10)
[2021-05-28] MEDS: POTASSIUM CHLORIDE 20MEQ TABLET SR PO SCH (08:26)
[2021-05-28] MEDS: ENOXAPARIN 30MG/0.3ML SYR SUBCUT SCH ×2 (08:26→20:43)
[2021-05-28] MEDS: MAGNESIUM OXIDE 400MG TABLET PO SCH ×3 (08:26→19:10)
[2021-05-28] MEDS ORDERED: DOPAMINE 400MG/250ML PREMIX 250 ML IV PRN (11:00)
[2021-05-28] MEDS: MIDODRINE HCL 5MG TABLET PO SCH ×3 (14:00→19:10)
[2021-05-28] MEDS: CEFTRIAXONE 1,000 MG in DEXTROSE 5% WATER 50 ML IV SCH (14:42)
[2021-05-29] VITALS (20 sets, daily range): BP systolic 81–137; BP diastolic 27–71
[2021-05-29] MEDS: ASPIRIN 81MG EC TABLET PO SCH (09:00)
[2021-05-29] MEDS: POTASSIUM CHLORIDE 20MEQ TABLET SR PO SCH (09:00)
[2021-05-29] MEDS: MIDODRINE HCL 5MG TABLET PO SCH ×3 (09:08→21:54)
[2021-05-29] MEDS: MAGNESIUM OXIDE 400MG TABLET PO SCH ×2 (09:08→17:20)
[2021-05-29] MEDS: AMIODARONE HCL 200 MG TABLET PO SCH ×2 (09:10→17:20)
[2021-05-29] MEDS: CARVEDILOL 3.125 MG TABLET PO SCH ×2 (09:11→21:00)
[2021-05-29] MEDS ORDERED: KCL 20MEQ/100ML PREMIX 100 ML IV NR (13:00)
[2021-05-29] MEDS: ENOXAPARIN 30MG/0.3ML SYR SUBCUT SCH ×3 (15:23→21:52)
[2021-05-29] MEDS: ONDANSETRON HCL 4MG/2ML INJ IV PRN ×2 (22:09→22:12)
[2021-05-29] MEDS ORDERED: DOPAMINE 400MG/250ML PREMIX 250 ML IV PRN (23:00)
[2021-05-30] VITALS (13 sets, daily range): BP systolic 79–113; BP diastolic 52–83
[2021-05-30] MEDS: MIDODRINE HCL 5MG TABLET PO SCH ×4 (05:52→20:53)
[2021-05-30] MEDS: POTASSIUM CHLORIDE 20MEQ TABLET SR PO SCH (09:00)
[2021-05-30] MEDS: CARVEDILOL 3.125 MG TABLET PO SCH (09:00)
[2021-05-30] MEDS: AMIODARONE HCL 200 MG TABLET PO SCH ×2 (09:52→17:45)
[2021-05-30] MEDS: ASPIRIN 81MG EC TABLET PO SCH (09:52)
[2021-05-30] MEDS: MAGNESIUM OXIDE 400MG TABLET PO SCH ×2 (09:53→17:45)
[2021-05-30] MEDS: ENOXAPARIN 30MG/0.3ML SYR SUBCUT SCH ×2 (09:53→20:52)
[2021-05-30 14:24] LABS: CHLORIDE 101 mEq/L (98-107)
[2021-05-31] VITALS (19 sets, daily range): BP systolic 77–135; BP diastolic 55–94
[2021-05-31] MEDS: MIDODRINE HCL 5MG TABLET PO SCH ×2 (05:32→16:51)
[2021-05-31] MEDS: ENOXAPARIN 30MG/0.3ML SYR SUBCUT SCH (09:00)
[2021-05-31] MEDS: ASPIRIN 81MG EC TABLET PO SCH (09:23)
[2021-05-31] MEDS: AMIODARONE HCL 200 MG TABLET PO SCH ×2 (09:23→16:50)
[2021-05-31] MEDS: MAGNESIUM OXIDE 400MG TABLET PO SCH ×2 (09:23→16:51)
[2021-05-31] MEDS ORDERED: LIP40 MT (14:05)
[2021-05-31] MEDS ORDERED: AMI2 PO (14:05)
[2021-05-31] MEDS ORDERED: POTA20TA82 MT (14:05)
[2021-05-31] MEDS ORDERED: MIDO5TAB4 PO (14:05)
[2021-05-31] MEDS ORDERED: FURO-151 MT (14:05)
[2021-05-31] MEDS ORDERED: MAGN400C MT (14:05)
[2021-05-31] MEDS ORDERED: KEPP500 MT (14:05)
[2021-05-31] MEDS ORDERED: ASPI-1406 PO (14:05)
[2021-05-31] MEDS ORDERED: METF-414 MT (14:05)
[2021-05-31] MEDS ORDERED: OMEP20TA2 MT (14:05)
== END 2021-05-31 18:50 | disposition home or self-care (01) | DRG 194 ==
LOC: ER 23:49 → MICUSO 05-23 11:34 → 7WST 05-23 19:54 → 8WST 05-24 05:59 → CVICU 05-24 21:44 → 5EST 05-26 07:42 → CVICU 05-27 17:57 → 5EST 05-28 10:09
PROVIDERS: ADMIT Internal Medicine; ATTEND Internal Medicine
PROC: 02HV33Z Insertion of Infusion Device into Superior Vena Cava, Percutaneous Approach (ICD-10-PCS; principal; 2021-05-24)
PROC: B548ZZA Ultrasonography of Superior Vena Cava, Guidance (ICD-10-PCS; 2021-05-24)
DX: I11.0 Hypertensive heart disease with heart failure (principal); R57.0 Cardiogenic shock; I46.9 Cardiac arrest, cause unspecified; I27.20 Pulmonary hypertension, unspecified; I42.0 Dilated cardiomyopathy; I47.1 Supraventricular tachycardia; E44.0 Moderate protein-calorie malnutrition; I48.91 Unspecified atrial fibrillation; I50.23 Acute on chronic systolic (congestive) heart failure; I47.2 Ventricular tachycardia; E11.9 Type 2 diabetes mellitus without complications; K76.9 Liver disease, unspecified; N39.0 Urinary tract infection, site not specified; Z86.711 Personal history of pulmonary embolism; Z86.73 Personal history of transient ischemic attack (TIA), and cerebral infarction without residual deficits; Z87.01 Personal history of pneumonia (recurrent); Z91.19 Patient's noncompliance with other medical treatment and regimen; Z91.02 Food additives allergy status; Z79.899 Other long term (current) drug therapy; I25.2 Old myocardial infarction; Z68.31 Body mass index [BMI] 31.0-31.9, adult; Z86.718 Personal history of other venous thrombosis and embolism
CPT/HCPCS: 36415; 36600; 71045; 76937; 80048; 80053; 80061; 80305; 80320; 81003; 82375; 82805; 82962; 83735; 83880; 84100; 84443; 84484; 85025; 87426; 93970; 99291; C1725; J0456; J0696; J1200; J1265; J1650; J1940; J2405; J3475; J3480; J3490; J7060; G0480